=== PATIENT | female | born 1955 | race Caucasian/White ===

== ENCOUNTER → 2018-01-24 09:32 | Outpatient (REF) | payer BC, SELFPAY ==
[2018-01-24 12:52] LABS: Absolute Basophil Count 0.02 k/cumm (0.0-0.2); Absolute Eosinophil Count 0.12 k/cumm (0.0-0.7); Absolute Lymphocyte Count 1.34 k/cumm (1.2-3.4); Absolute Monocyte Count 0.53 k/cumm (0.11-0.7); Absolute Neutrophil Count 2.39 k/cumm (1.2-6.7); Basophils % 0.5; Eosinophils % 2.7; HCT 41.4 % (36.0-46.0); HGB 14.1 g/dL (12.0-15.5); Lymphocytes % 30.5; Mean Corp. HGB Concentration 34.1 g/dL (32.0-36.0); Mean Corpuscular Hemoglobin 29.6 pg (27.0-33.0); Mean Platelet Volume 9.3 fL (8.0-11.0); Neutrophils % 54.3; Platelet Count 232 x1000/uL (130-400); RBC 4.76 m/cumm (4.00-5.20)
[2018-01-24 13:18] LABS: BUN 30 mg/dL (7-18); CREATININE 0.93 mg/dL (0.55-1.02); Calcium 9.6 mg/dL (8.5-10.1); Chloride 102 mmol/L (98-107); Glucose 101 mg/dL (70-100); Potassium 4.9 mmol/L (3.5-5.1); Sodium 139 mmol/L (136-145); TSH 0.85 uIU/mL (0.358-3.74)
[2018-01-27 11:44] LABS: Hepatitis C Ab w Rflx HCV PCR Negative (NEGAT)
== END ==
LOC: NCHCN 09:32
PROVIDERS: PCP Internal Medicine; Visit Provider Internal Medicine
DX: I10 Essential (primary) hypertension (principal); R51 Headache; Z11.59 Encounter for screening for other viral diseases
CPT/HCPCS: 80048; 86803; 84443; 85025

== ENCOUNTER 2018-03-14 17:13 | Outpatient (REF) | payer BC, SELFPAY ==
--- NOTE | 2018-03-14 15:30 | PAPFT_PTH ---
PATIENT: Beatriz Combs LOC: [facility] U#:[id number] AGE/SX: 63/F ROOM: RE03/14/[address]: ANAIS Olivares : 1955 BED: DIS: 03/14/2018 SPEC #: [id number] RECD: 03/14/18 17:20 STATUS: SOCORRO REMonse #: [id number] MAUREEN: 03/14/18 15:[address]: Adelita Ferguson DEPT: [facility] Cytology RECD BY: Nae Deleon ENTERED: 03/14/18 17:20 SP TYPE: PAPFT OTHR DR: Bharath Gupta Tissues: 1 - CX/ENDOCX FOR PAP SMEARS Procedures: PAP THIN PREP/UVM Screening HPV DNA PROBE Comments: [id number]
== END 2018-03-14 17:33 ==
LOC: LBN 17:13
PROVIDERS: PCP Internal Medicine; Referring Provider Nurse Practitioner Family; Visit Provider Nurse Practitioner Family
DX: Z12.4 Encounter for screening for malignant neoplasm of cervix (principal); Z11.51 Encounter for screening for human papillomavirus (HPV)
CPT/HCPCS: 88142; 87624

== ENCOUNTER 2019-01-28 00:20 | Outpatient (CLI) | payer BC, SELFPAY ==
--- NOTE | 2019-01-28 10:44 | DI.MAMMO_ITS ---
SYMPTOMS/DIAGNOSIS: SCREENING, Z12.39 MAMMOGRAM: Mammograms were interpreted according to the usual protocol including computer analysis with CAD system, tomosynthesis and C view imaging. The breasts are of moderate density with fairly symmetrical distribution of fibroglandular tissue. No dominant mass or clumped microcalcification is identified in either breast. Current examination is compared with the previous examinations including January 2017 and there has been no gross interval change in appearance in comparison with the previous studies. CONCLUSION: No specific evidence of malignancy at this time. Routine screening examinations are suggested at yearly intervals in this age group according to the ACS/ACR guidelines. Category 1, breast density category B. MQSA ASSESSMENT OF FINDINGS: Negative. Category 1. Patient will receive a letter notifying them of these results. BI-RADS category B. There are scattered areas of fibroglandular density.
== END 2019-01-28 00:40 ==
PROVIDERS: PCP Internal Medicine; Visit Provider Nurse Practitioner Family
DX: Z12.31 Encounter for screening mammogram for malignant neoplasm of breast (principal)
CPT/HCPCS: 77063; 77067

== ENCOUNTER 2019-05-14 15:14 | Emergency (ER) | payer BC, SELFPAY ==
[2019-05-14 15:15] VITALS: BP 179/92; PULSE 87; RESP 14; TEMP 37.1; O2SAT 95
--- NOTE | 2019-05-14 15:34 | W.ED.GENAD ---
Discharge Plan Disposition Patient Disposition: HOME Condition: Good Discharge Details Chief Complaint: Vascular Clinical Impression: Vascular spasm Primary Care Provider: Bharath Gupta ED Provider: Suresh Castillo Home Meds and New Rx's Prescriptions: No Action Ultra CoQ10 75 mg capsule 75 mg PO DAILY RF: 0 acetaminophen [Tylenol] 325 mg capsule 325 mg PO ONCE PRNRF: 0 multivitamin [Daily Value] 1 EACH tablet 1 ea PO RF: 0 calcium carbonate-vitamin D3 1 EACH tablet 1 tab PO DAILY RF: 0 aspirin [Ecotrin Low Strength] 81 MG tablet,delayed release (DR/EC) 81 mg PO DAILY RF: 0 flaxseed oil 1,000 MG capsule 1,000 mg PO DAILY RF: 0 red yeast rice 600 MG capsule 600 mg PO DAILY RF: 0 omega-3 fatty acids-fish oil 1 EACH capsule 1 cap PO DAILY RF: 0 Qoxxkzqpnkd-Vvpso-YTI Complex 1 EACH tablet 1 tab PO DAILY RF: 0 cinnamon bark-chromium picolin 1 EACH capsule 1 cap PO DAILY RF: 0 spironolactone 25 mg Tablet 25 mg PO DAILY RF: 0 Discharge Instructions Instructions: Raynaud Disease (ED) Additional Instructions: At this time your symptoms are not classic to her nods syndrome, but do appear to be a vascular spasm of sorts. If it occurs again please massage it gently with your hand, make sure it is warm, and move it with your regular exercise. Please follow-up closely with Dr. Gupta. If you notice any worsening of your symptoms, or any new symptoms such as prolonged episodes of change in color, worsening pain, swelling around her hand, vomiting, diarrhea, fever, chills, shortness of breath, chest pain, numbness, weakness, or fainting , please return immediately to the emergency department for reevaluation. Please follow up with your primary care provider as soon as possible for reassessment and reevaluation. As always, it was a pleasure participating in your medical care today. Referrals: Bharath Gupta MD [Primary Care Provider] - Medical Decision Making This is a pleasant 64-year-old female who presents today for evaluation of skin color changes in her left nondominant thumb. Symptoms like this happen per the patient 14 years ago where she saw a specialist at [facility] after being referred by Dr. Gupta. They were unsure of the etiology at that time however the symptoms resolved on its own. She has had a return of the symptoms in the past week, 2-3 episodes today. The skin on the dorsal aspect of the thumb will become pale, and on the ventral aspect it will become almost violaceous. Lasts a few minutes, and usually resolves on its own. It is associated with mild tingling. She denies any trauma or other complaints. She also admits that the skin is notably cool to the touch during these episodes. She has no other complaints. She was on a calcium channel deana but was recently switched to spironolactone. No other complaints or modifying factors. Physical exam at this time demonstrates completely normal vascular exam.Bedside ultrasound demonstrates a normal and patent radial artery, a normal, patent and pulsatile deep and superficial volar arches stemming from the radial artery. No other abnormalities. Her history and exam is atypical raynouds, however there certainly seems to be a component of vascular spasm. At this time I see no indication for calcium channel deana cream, I do recommend that she keeps her extremities and digits warm at all times. She monitors closely for change in symptoms, and she follows up closely with Dr. Gupta. Additionally although she has slight linear abnormalities on the distal tip of the nail, there is no evidence of splinter hemorrhages, Janeway spots or Osler nodes. Her echocardiogram from 2012 demonstrates no evidence of atrial septal defect or ventricular septal defect, and with the notable focal illness of her symptoms I feel that it is notably inconsistent with distal clot. With no evidence of acute life-threatening etiology at this time I feel she can be safely discharged home with close follow-up. I have extensively reviewed the treatment plan and discharge instructions with the patient and their family. I have addressed all patient concerns at this time. The patient and family was made aware of what symptoms to monitor for that would warrant a return to the emergency department. Discussed the plan with the patient and family, they demonstrate verbal understanding and agreement with our assessment and plan at this time. HPI General Date/Time Provider Initiated Documentation: 05/14/19 15:15. HPI Narrative: This is a pleasant 64-year-old female who presents today for evaluation of skin color change on her left thumb on her nondominant hand. Patient states that years ago she had a similar episode where it occurred, she saw a specialist at [facility] and they were unsure as to what the etiology was. She has had no symptoms since then until the last week, today she has had 2 or 3 episodes where the skin color on the thumb will change she will be pale on the dorsal aspect, and violaceous on the ventral aspect. It will last anywhere from few minutes to around an hour. It does have associated tingling. Usually resolves on its own without any incident. Patient is on no blood thinners. She denies any history of clots. She does have a known cardiac murmur. She is not on any exogenous estrogen. She has no other complaints at this time. She denies chest pain, shortness of breath, chest heaviness, fever, chills, night sweats, arm pain neck pain elbow pain or forearm pain. No other modifying factors. No other complaints at this time. Of note she was recently on a calcium channel deana, but recently was switched from that to spironolactone. However she had only been on the calcium channel deana for 3 weeks. Not long-term. Related Data Home Medications Medication Instructions Recorded Confirmed Mbfqqfcimlh-Gcunx-EIH Complex 1 tab PO DAILY 04/15/13 03/14/18 aspirin [Ecotrin Low Strength] 81 mg PO DAILY 04/15/13 03/14/18 calcium carbonate-vitamin D3 1 tab PO DAILY 04/15/13 03/14/18 flaxseed oil 1,000 mg PO DAILY 04/15/13 03/14/18 omega-3 fatty acids-fish oil 1 cap PO DAILY 04/15/13 03/14/18 red yeast rice 600 mg PO DAILY 04/15/13 03/14/18 cinnamon bark-chromium picolin 1 cap PO DAILY 07/14/13 03/14/18 multivitamin [Daily Value] 1 ea PO 01/26/16 03/14/18 coenzyme Q10 75 mg capsule 75 mg PO DAILY 01/12/19 acetaminophen 325 mg capsule 325 mg PO ONCE PRN 03/27/19 spironolactone 25 mg PO DAILY 05/14/19 05/14/19 Allergies Allergy/AdvReac Type Severity Reaction Status Date / Time tramadol HCl [From Ultram] AdvReac Severe n/v Verified 05/14/19 15:38 codeine AdvReac Intermediate n/v Verified 05/14/19 15:38 ibuprofen AdvReac Intermediate Hematuria Verified 12/05/19 15:38 prednisone AdvReac GI issues Verified 05/14/19 15:38 General Stated Complaint: Vascular TIFFANY: 3 Review of Systems All systems reviewed & are unremarkable except as noted in HPI and below [facility] Social History (Updated 03/27/19 @ 11:08 by Kassie Frances RN) Smoking/Tobacco Use Status: Former Tobacco Use Drug use: Never Seatbelt use: always History History 3 Para 2 Hx # Term Pregnancies Multiple births Hx # Pregnancies Ectopic pregnancies AB induced Hx Number of Living Children AB spontaneous Exam Narrative Exam Narrative: 1.Const: Well-nourished, Well-developed, appearing stated age 2.Eyes: PERRL, no conjunctival injection, and symmetrical lids. 3.ENT: Atraumatic external nose and ears. Moist MM. Neck: Symmetric, trachea midline, No thyromegaly. 4.CVS: +S1/S2, Mild cardiac murmur. Peripheral pulses 2+ and equal in all extremities. Brisk capillary refill in all extremities. 5.RESP: Unlabored respiratory effort. Clear to auscultation bilaterally. No wheezes rales or rhonchi 6.GI: Soft, Nontender/Nondistended, No hepatosplenomegaly. No guarding or rebound. 7.MSK: Normocephalic/Atraumatic, Extremities w/o deformity or ttp No cyanosis or clubbing, Normal movement of all extremities Left thumb: The patient's left thumb is completely normal in appearance. No violaceous discolorations. The capillary refill is brisk, less than 2 seconds. Sensation is intact, including light touch, and pinprick. Radial pulses normal and +2 bilaterally. Normal flexion-extension movement of the finger. Bedside ultrasound demonstrates a normal and patent radial artery, a normal, patent and pulsatile deep and superficial volar arches stemming from the radial artery. 8.Skin: Warm, Dry. No rashes or lesions. No Osler nodes or Janeway lesions. 9.Neuro: note teller II-XII grossly intact. Sensation grossly intact, no focal neurologic deficits. 10.Psych: (AAO) x3. Appropriate mood and affect Course Vital Signs Vital signs: Vital Signs Temperature 37.1 C 05/14/19 15:15 Pulse 87 05/14/19 15:15 Respiratory Rate 14 05/14/19 15:15 Blood Pressure 179/92 H 05/14/19 15:15 Pulse Oximetry 95 05/14/19 15:15 Temperature 37.1 C 05/14/19 15:15 Temperature Source Skin 05/14/19 15:15 Pulse 87 05/14/19 15:15 Respiratory Rate 14 05/14/19 15:15 Blood Pressure 179/92 H 05/14/19 15:15 Blood Pressure Position Sitting 05/14/19 15:15 Pulse Oximetry 95 05/14/19 15:15 Oxygen Delivery Method Room Air 05/14/19 15:15 Oxygen Flow Rate 0 05/14/19 15:15 Pain Level 0 05/14/19 15:15 Comment 05/14/19 15:15
== END 2019-05-14 15:47 | disposition home or self-care (01) ==
LOC: ER 15:54
PROVIDERS: Emergency Provider Student in an Organized Health Care Education/Training Program; PCP Internal Medicine
DX: I73.9 Peripheral vascular disease, unspecified (principal); R20.2 Paresthesia of skin
CPT/HCPCS: 99282

== ENCOUNTER 2019-05-22 16:11 | Outpatient (REF) | payer BC, SELFPAY ==
[2019-05-22 21:02] LABS: Anion Gap 8.7 mmol/L (3-11); BUN 22 mg/dL (7-18); CO2 29.3 mmol/L (21.0-32.0); CREATININE 0.89 mg/dL (0.55-1.02); Calcium 9.3 mg/dL (8.5-10.1); Chloride 101 mmol/L (98-107); Glucose 95 mg/dL (74-106); Potassium 4.7 mmol/L (3.5-5.1); Sodium 139 mmol/L (136-145)
== END 2019-05-22 16:31 ==
LOC: NCHCN 16:11
PROVIDERS: PCP Internal Medicine; Visit Provider Internal Medicine
DX: I10 Essential (primary) hypertension (principal)
CPT/HCPCS: 80048

== ENCOUNTER 2019-06-10 09:49 | Emergency (ER) | payer BC, SELFPAY ==
[2019-06-10 10:01] VITALS: BP 158/95; PULSE 95; RESP 16; TEMP 36.5; O2SAT 97
[2019-06-10 10:08] LABS: Bilirubin Small (Negative); Blood Large (Negative); Clarity Clear (Clear); Glucose Negative (Negative); Ketones Negative (Negative); Leukocyte Esterase Large (Negative); Nitrite Positive (Negative); Urobilinogen 0.2 EU/dL (Up TO 0.2); pH 6.5 (5-8)
[2019-06-10 10:17] LABS: Bacteria Color Interference HPF (Negative); C & S Indicated? Color Interference; Crystals Color Interference HPF (Negative); Epithelial Cells Color Interference HPF (Negative); Mucus Color Interference (Negative); RBC >50 HPF (0-2)
[2019-06-10 10:18] LABS: WBC Color Interference HPF (0-5)
--- NOTE | 2019-06-10 10:23 | ED.GENADUL_ITS ---
Discharge Plan Disposition Patient Disposition: HOME Condition: Stable Discharge Details Chief Complaint: Urinary Clinical Impression: UTI (urinary tract infection) Primary Care Provider: Bharath Gupta ED Provider: Darlin Negro Home Meds and New Rx's Prescriptions: New cephalexin [Keflex] 500 mg capsule 500 mg PO BID 5 Days Qty: 10 RF: 0 phenazopyridine [Pyridium] 200 mg tablet 200 mg PO TID PRN (Reason: pain) Qty: 6 RF: 0 Continued Ultra CoQ10 75 mg capsule 75 mg PO DAILY RF: 0 acetaminophen [Tylenol] 325 mg capsule 325 mg PO ONCE PRNRF: 0 multivitamin [Daily Value] 1 EACH tablet 1 ea PO RF: 0 calcium carbonate-vitamin D3 1 EACH tablet 1 tab PO DAILY RF: 0 aspirin [Ecotrin Low Strength] 81 MG tablet,delayed release (DR/EC) 81 mg PO DAILY RF: 0 flaxseed oil 1,000 MG capsule 1,000 mg PO DAILY RF: 0 red yeast rice 600 MG capsule 600 mg PO DAILY RF: 0 omega-3 fatty acids-fish oil 1 EACH capsule 1 cap PO DAILY RF: 0 Spkduxbjxcs-Aihte-ROZ Complex 1 EACH tablet 1 tab PO DAILY RF: 0 cinnamon bark-chromium picolin 1 EACH capsule 1 cap PO DAILY RF: 0 nifedipine 30 mg Tablet Extended Release 30 mg PO DAILY RF: 0 Discharge Instructions Instructions: Urinary Tract Infection in Women (ED) Additional Instructions: Take the antibiotics until finished. Use the Pyridium as needed and directed for pain with urination. Drink plenty of fluids and get plenty of rest. Follow-up with your primary care doctor in 1 week. Return to the emergency department with any worsening or new concerning symptoms. Discharge Data Discharge Date/Time-TO BE ENTERED AT DEPARTURE: 06/10/19 10:50 Discharge Physician: Darlin Negro Medical Decision Making 64-year-old female presents with dysuria, hematuria, urinary frequency and urgency since yesterday. She states she noticed pink tinge to her urine yesterday, which turned to red color last night now with red with blood clots this morning. She denies fever, vomiting, abdominal or back pain. Abdomen soft nontender. No CVA tenderness. Urinalysis notes greater than 50 RBCs, large leukocyte esterase and positive nitrite. Remainder of microscopic analysis not completed due to color interference. Discussed with patient that we cannot send this for urine culture as there is color interference but will plan to treat with Keflex and Pyridium. Patient is understanding of this plan. She is advised to follow-up with her primary care doctor for reevaluation and to return here with any worsening symptoms. Medical Records Medical records reviewed: Yes I reviewed the patient's medical records. Lab Data Lab results reviewed: Yes I reviewed the patient's lab results. Labs: Laboratory Tests Range/Units 06/10/19 08:55 Urine Color (Yellow) Red Urine Clarity (Clear) Clear Urine pH (5-8) 6.5 Ur Specific Solon (1.005-1.025) 1.020 Urine Protein (Negative) mg/dL >=300 H Urine Ketones (Negative) mg/dL Negative Urine Blood (Negative) Large H Urine Nitrite (Negative) Positive H Urine Bilirubin (Negative) Small H Urine Urobilinogen (Up TO 0.2) EU/dL 0.2 Ur Leukocyte Esterase (Negative) Large H Urine RBC (0-2) HPF >50 H Urine WBC (0-5) HPF Color interference Ur Epithelial Cells (Negative) HPF Color interference Urine Crystals (Negative) HPF Color interference Urine Bacteria (Negative) HPF Color interference Urine Mucus (Negative) Color interference Ur Culture Indicated? Color interference Urine Glucose (Negative) mg/dL Negative HPI General Mode of arrival: ambulatory . Date/Time Provider Initiated Documentation: 06/10/19 09:51 . Limitations to Documentation: no limitations . Information obtained by: patient . History of Present Illness 64 year old F presents to the emergency department with the chief complaint of UTI symptoms, Patient started experiencing this day(s) (1) and it has been constant. No relieving factors improve symptom(s), No exacerbating factors reported . Patient notes denies fever/chills, headaches and nausea/vomiting. Patient did receive the following treatments prior to arrival, none Related Data Home Medications Medication Instructions Recorded Confirmed Kxqrtiatlpo-Govth-KTE Complex 1 tab PO DAILY 04/15/13 06/10/19 aspirin [Ecotrin Low Strength] 81 mg PO DAILY 04/15/13 06/10/19 calcium carbonate-vitamin D3 1 tab PO DAILY 04/15/13 06/10/19 flaxseed oil 1,000 mg PO DAILY 04/15/13 06/10/19 omega-3 fatty acids-fish oil 1 cap PO DAILY 04/15/13 06/10/19 red yeast rice 600 mg PO DAILY 04/15/13 06/10/19 cinnamon bark-chromium picolin 1 cap PO DAILY 07/14/13 06/10/19 multivitamin [Daily Value] 1 ea PO 01/26/16 03/14/18 coenzyme Q10 75 mg capsule 75 mg PO DAILY 01/12/19 06/10/19 acetaminophen 325 mg capsule 325 mg PO ONCE PRN 03/27/19 06/10/19 cephalexin [Keflex] 500 mg PO BID 5 Days #10 cap 06/10/19 nifedipine 30 mg PO DAILY 06/10/19 06/10/19 phenazopyridine [Pyridium] 200 mg PO TID PRN #6 tab 06/10/19 Previous Rx's Medication Instructions Recorded cephalexin [Keflex] 500 mg PO BID 5 Days #10 cap 06/10/19 phenazopyridine [Pyridium] 200 mg PO TID PRN #6 tab 06/10/19 Allergies Allergy/AdvReac Type Severity Reaction Status Date / Time tramadol HCl [From Ultram] AdvReac Severe n/v Verified 06/10/19 10:04 codeine AdvReac Intermediate n/v Verified 06/10/19 10:04 ibuprofen AdvReac Intermediate Hematuria Verified 06/10/19 10:04 prednisone AdvReac GI issues Verified 06/10/19 10:04 General Stated Complaint: Urinary TIFFANY: 4 Review of Systems All systems reviewed & are unremarkable except as noted in HPI and below Constitutional Constitutional: Reports as per HPI, Denies chills and Denies fever(s) Eyes Eyes: Denies blurry vision ENT Ears, Nose, Mouth, and Throat: Denies dizziness, Denies sore throat and Denies throat swelling Cardiovascular Cardiovascular: Denies chest pain and Denies dyspnea Respiratory Respiratory: Denies cough and Denies dyspnea Gastrointestinal Gastrointestinal: Denies abdominal pain, Denies diarrhea and Denies vomiting Genitourinary Genitourinary: Reports hematuria, Reports urinary frequency, Reports dysuria, Reports urinary hesitancy and Reports urinary urgency Musculoskeletal Musculoskeletal: Denies back pain and Denies numbness Integumentary/Breasts Skin/Breast: Denies lesions and Denies rash Neurologic Neurologic: Denies dizziness, Denies focal weakness and Denies numbness Allergic/Immunologic Allergic/Immunologic: Denies throat swelling [facility] Medical History HTN (hypertension) Reactive airway disease (Acute) Surgical History Colonoscopy - MAC (03/25/17) Family History Mother Diabetes Coronary artery disease Father Coronary artery disease Stroke Sister Diabetes Coronary artery disease Other Thyroid disorder Social History Smoking/Tobacco Use Status: Former Tobacco Use Drug use: Never Seatbelt use: always History History 3 Para 2 Hx # Term Pregnancies Multiple births Hx # Pregnancies Ectopic pregnancies AB induced Hx Number of Living Children AB spontaneous Exam Const General: cooperative, healthy appearing and no acute distress HENMT Head: normal to inspection Face and sinus: normal facial exam Eyes General: appearance normal, both eyes and all related structures EOM: EOM intact bilaterally Neck Neck: normal visual inspection and No submandibular swelling Lymphatic: no lymphadenopathy noted Chest Chest: normal inspection of the chest and no tenderness Resp Effort & Inspection: normal respiratory effort and able to speak in complete sentences Auscultation: clear to auscultation bilaterally Cardio Rate: regular rate Rhythm: regular rhythm GI Inspection: normal to inspection Palpation: soft, not firm, not rigid and nontender Auscultation: normal bowel sounds Back/Spine/Pelvis Back: no CVA tenderness Skin General skin exam: no rashes or lesions noted Neuro General: alert, awake and oriented x3 Cognition: normal cognition Speech: speech normal Motor: muscle tone normal throughout Sensory Exam: no sensory deficits noted Extrem General: normal to inspection and full ROM Psych Appearance: grossly normal Mental Status: mental status grossly normal Speech and Movement: speech and movement normal Affect: normal affect Course Vital Signs Vital signs: Vital Signs Temperature 97.7 F 06/10/19 10:01 Pulse 95 H 06/10/19 10:01 Respiratory Rate 16 06/10/19 10:01 Blood Pressure 158/95 H 06/10/19 10:01 Pulse Oximetry 97 06/10/19 10:01 Temperature 97.7 F 06/10/19 10:01 Temperature Source Skin 06/10/19 10:01 Pulse 95 H 06/10/19 10:01 Respiratory Rate 16 06/10/19 10:01 Respiratory Effort Non-Labored 06/10/19 10:01 Blood Pressure 158/95 H 06/10/19 10:01 Blood Pressure Position Sitting 06/10/19 10:01 Pulse Oximetry 97 06/10/19 10:01 Oxygen Delivery Method Room Air 06/10/19 10:01 Oxygen Flow Rate 0 06/10/19 10:01 Pain Level 0 06/10/19 10:07 Lab/Test Results Lab/Test Results: Laboratory Tests Range/Units 06/10/19 08:55 Urine Color (Yellow) Red Urine Clarity (Clear) Clear Urine pH (5-8) 6.5 Ur Specific Solon (1.005-1.025) 1.020 Urine Protein (Negative) mg/dL >=300 H Urine Ketones (Negative) mg/dL Negative Urine Blood (Negative) Large H Urine Nitrite (Negative) Positive H Urine Bilirubin (Negative) Small H Urine Urobilinogen (Up TO 0.2) EU/dL 0.2 Ur Leukocyte Esterase (Negative) Large H Urine RBC (0-2) HPF >50 H Urine WBC (0-5) HPF Color interference Ur Epithelial Cells (Negative) HPF Color interference Urine Crystals (Negative) HPF Color interference Urine Bacteria (Negative) HPF Color interference Urine Mucus (Negative) Color interference Ur Culture Indicated? Color interference Urine Glucose (Negative) mg/dL Negative
== END 2019-06-10 10:50 | disposition home or self-care (01) ==
PROVIDERS: Emergency Provider Physician Assistant; PCP Internal Medicine
DX: R30.0 Dysuria (principal); R31.9 Hematuria, unspecified; N39.0 Urinary tract infection, site not specified; I10 Essential (primary) hypertension
CPT/HCPCS: 99283; 81003; 81015

== ENCOUNTER 2019-06-15 12:21 | Outpatient (REF) | payer BC, SELFPAY ==
[2019-06-15 14:27] LABS: Bilirubin Negative (Negative); Blood Negative (Negative); Clarity Clear (Clear); Glucose Negative (Negative); Ketones Negative (Negative); Leukocyte Esterase Negative (Negative); Nitrite Negative (Negative); Specific Gravity 1.025 (1.005-1.025); Urobilinogen 0.2 EU/dL (Up TO 0.2)
[2019-06-15 17:42] LABS: COMMENT (LAB VIEW ONLY) 117.72 mg/dL; Microalb ug/mg Crea 27.3 ug/mg Cr
== END 2019-06-15 12:41 ==
LOC: NCHCN 12:21
PROVIDERS: PCP Internal Medicine; Visit Provider Internal Medicine
DX: I10 Essential (primary) hypertension (principal); R31.21 Asymptomatic microscopic hematuria; J45.990 Exercise induced bronchospasm; I73.00 Raynaud's syndrome without gangrene
CPT/HCPCS: 81003; 82043; 82570

== ENCOUNTER 2019-08-19 03:14 | Outpatient (CLI) | payer BC, SELFPAY ==
[2019-08-19 08:07] LABS: CREATININE 0.95 mg/dL (0.55-1.02); Estimated GFR 59.04 (mL/min/1.73m2)
== END 2019-08-19 03:34 ==
PROVIDERS: PCP Internal Medicine; Visit Provider Internal Medicine
DX: Z01.812 Encounter for preprocedural laboratory examination (principal); R69 Illness, unspecified
CPT/HCPCS: 36415; 82565

== ENCOUNTER 2019-08-24 00:24 | Outpatient (CLI) | payer BC, SELFPAY ==
--- NOTE | 2019-08-24 | DI.CT_ITS ---
EXAM: CT ABDOMEN PELVIS WO/W CLINICAL HISTORY: ASYMPTOMATIC MICROSCOPIC HEMATURIA, R31.21 TECHNIQUE: Imaging Protocol: Axial computed tomography images with coronal and sagittal reformatted images were created and reviewed CONTRAST MATERIAL: Intravenous: Omnipaque 350 Contrast volume:100 mL Oral: No COMPARISON: No exams were available for comparison FINDINGS: ABDOMEN: Lung Bases: Normal where visualized. Liver: Normal density. No measurable mass. 1.8 cm simple cyst in the right lobe. Portal, Superior Mesenteric, and Splenic Veins: Unremarkable. Gallbladder and Biliary Tract: No radiodense calculus or dilation. Pancreas: Normal density, no abnormal calcifications or inflammatory process. Spleen: Normal. Adrenals: No masses seen. Kidneys: Normal size, contour and axis. No radiodense stones or obstructive uropathy. No masses seen. Tiny hypodensities are seen in the kidneys bilaterally. They are too small for further characteriza tion but likely reflect small cysts. Abdominal Aorta: Abdominal portion non-dilated. Atherosclerosis. Bowel: No obstruction or bowel wall thickening. No evidence of acute appendicitis. Peritoneal Cavity: No ascites, collection or mesenteric inflammatory response. Lymph Nodes: Within normal limits. Bones: Degenerative changes present. Soft Tissues: Unremarkable. PELVIS: Bladder: There is mild diffuse wall thickening of the urinary bladder. This may be due to underdiste ntion. An infectious or inflammatory process cannot be excluded. Reproductive Organs: Unremarkable as visualized. Lymph Nodes: Within normal limits. Bones: Grade 1 pseudo spondylolisthesis of L4 on L5 is noted. Mild degenerative changes are seen in the spine. IMPRESSION: 1. No evidence of nephrolithiasis or hydronephrosis. 2. Diffuse mild urinary bladder wall thickening. This may be due to underdistention. An infectious or inflammatory process cannot be excluded. RADIATION DOSE DELIVERED: DATA REPOSITORY: All CT scans at this facility are submitted to the National Radiology Data Registry (NRDR) Dose Index Registry (DIR) with the [employer] (ACR). RADIATION OPTIMIZATION: All CT scans at this facility use at least one of these dose optimization te chniques: automated exposure control; mA and/or kV adjustment per patient size (includes targeted exa ms where dose is matched to clinical indication); or iterative reconstruction.
[2019-08-24] MEDS: Omnipaque 350 MG/ML 100 ML BTL IV (09:03)
[2019-08-24] MEDS: Normal Saline - Diluent 50 ML VIAL IV (09:06)
== END 2019-08-24 00:44 ==
PROVIDERS: PCP Internal Medicine; Visit Provider Internal Medicine
DX: R31.21 Asymptomatic microscopic hematuria (principal); K76.89 Other specified diseases of liver; N28.1 Cyst of kidney, acquired; N32.89 Other specified disorders of bladder
CPT/HCPCS: 74178; J3490

== ENCOUNTER 2019-10-14 01:26 | Outpatient (CLI) | payer BC, SELFPAY ==
--- NOTE | 2019-10-14 09:00 | DI.DEXA_ITS ---
EXAM: XR DEXA BONE DENSITY W/WO DEBBIE CLINICAL HISTORY: POSTMENOPAUSAL DISORDER, N95.9 TECHNIQUE: [employer] C densitometer COMPARISON: No exams were available for comparison FINDINGS: The DEBBIE image shows no evidence of compression fractures. The bone mineral density measurements of the lumbar spine correspond to a total T-score of -1.7, in t he osteopenic range. The bone mineral density measurements of the left hip correspond to a total T-score -2.3, in the oste openic range. The femoral neck T-score Is -2.0. The left forearm bone mineral density measurements correspond to a T-score of the distal 3rd of -2.2, consistent with osteopenia. IMPRESSION: Osteopenia of the lumbar spine, left hip and left forearm.
== END 2019-10-14 01:46 ==
PROVIDERS: PCP Internal Medicine; Visit Provider Internal Medicine
DX: M85.88 Other specified disorders of bone density and structure, other site (principal); N95.9 Unspecified menopausal and perimenopausal disorder
CPT/HCPCS: 77080

== ENCOUNTER 2019-11-11 13:00 | Outpatient (REF) | payer BC, SELFPAY ==
--- NOTE | 2019-11-11 11:00 | PAPNONF_PTH ---
PATIENT: Beatriz Combs LOC: [facility] U#:[id number] AGE/SX: 64/F ROOM: RE11/11/[address]: Chela Manzo DNP : 1955 BED: DIS: 11/11/2019 SPEC #: [id number] RECD: 11/11/19 14:53 STATUS: [facility] REQ #: [id number] MAUREEN: 11/11/19 11:[address]: Chela Manzo DEPT: [facility] Cytology RECD BY: Nae Deleon ENTERED: 11/11/19 14:53 SP TYPE: NINA RODRIGUEZ DR: Bharath Gupta Tissues: 1 - BODY FLUID CYTO(SPUTUM/URINE)UV Procedures: BODY FLUID CYTO(URINE/SPUTUM) Comments: [id number] (TOTAL VOLUME = 84 ml's) (42 ml's URINE & 42 ml's CYTOLYT ADDED IN 2 CONTAINERS)
== END 2019-11-11 13:20 ==
LOC: LBN 13:00
PROVIDERS: PCP Internal Medicine; Visit Provider Nurse Practitioner Gerontology
DX: R31.9 Hematuria, unspecified (principal); R82.90 Unspecified abnormal findings in urine
CPT/HCPCS: 88104

== ENCOUNTER 2020-01-14 08:50 | Outpatient (REF) | payer BC, SELFPAY ==
[2020-01-14 20:52] LABS: Anion Gap 10.3 mmol/L (3-11); BUN 23 mg/dL (7-18); CO2 27.7 mmol/L (21.0-32.0); CREATININE 0.81 mg/dL (0.55-1.02); Calcium 9.9 mg/dL (8.5-10.1); Chloride 104 mmol/L (98-107); Glucose 123 mg/dL (74-106); Potassium 4.3 mmol/L (3.5-5.1); Sodium 142 mmol/L (136-145)
== END 2020-01-14 09:10 ==
LOC: NCHCN 08:50
PROVIDERS: PCP Internal Medicine; Visit Provider Internal Medicine
DX: I10 Essential (primary) hypertension (principal)
CPT/HCPCS: 80048

== ENCOUNTER 2020-06-17 04:04 | Outpatient (CLI) | payer BC, SELFPAY ==
--- NOTE | 2020-06-17 07:47 | DI.MAMMO_ITS ---
EXAM: MG MAMMO SCREENING CLINICAL HISTORY: SCREENING,Z12.39 TECHNIQUE: Bilateral full field digital CC and MLO mammographic images were obtained with 3D tomosyn thesis and utilizing computer aided detection (CAD). COMPARISON: Available for comparison. FINDINGS: Masses/Architectural Distortion: None seen. Stable breast nodules are seen. Microcalcifications: No suspicious pleomorphic-type are seen. Skin Thickening/Nipple Retraction: None. IMPRESSION: 1. No significant interval change with no specific features of malignancy noted. 2. Unless there is more urgent need, screening mammography is recommended, as per [place] [employer] guidelines. BI-RADS Category 1 - Negative Breast Density - Category B - Scattered areas of fibroglandular density Breast density category C or D implies that the patient has dense breast tissue. Dense breast tissue is very common and is not abnormal but dense breast tissue can make it harder to find cancer on a ma mmogram. Also, dense breast tissue may increase their breast cancer risk. This information about the result of the mammogram report was provided to the patient to raise their awareness. Use this report when you speak with the patient about their risks for breast cancer, which includes their family hist ory. At that time, you may recommend for more screening tests (Ultrasound or MRI) as they might be us eful based on their risk. A negative radiographic report should not delay biopsy if a dominant or clinically suspicious mass is present. Up to ten percent of cancers are not identified on mammography. A negative report may reinforce clinical impression. Adenosis and dense breasts may obscure an underlying neoplasm. False positive reports average 6 to 10%. Patient will receive a letter notifying them of these results.
== END 2020-06-17 04:24 ==
PROVIDERS: PCP Internal Medicine; Visit Provider Nurse Practitioner Family
DX: Z12.31 Encounter for screening mammogram for malignant neoplasm of breast (principal)
CPT/HCPCS: 77063; 77067

== ENCOUNTER 2020-06-21 18:19 | Outpatient (REF) | payer BC, SELFPAY | END 2020-06-21 18:39 | LOC: NCHCN 18:19 | PROVIDERS: PCP Internal Medicine; Visit Provider Internal Medicine | DX: R31.9 Hematuria, unspecified (principal) | CPT/HCPCS: 87077; 87086; 87186 ==

== ENCOUNTER 2021-01-03 16:55 | Outpatient (REF) | payer BC, SELFPAY ==
[2021-01-03 21:53] LABS: HCT 40.8 % (36.0-46.0); HGB 13.7 g/dL (11.2-15.7); MCH 29.7 pg (27.0-33.0); MCHC 33.6 % (32.0-36.0); MCV 88.5 fL (80-95); MPV 9.9 fL (8.0-11.0); Platelet Count 210 10^3/uL (130-400); RBC 4.61 10^6/uL (3.93-5.22); RDW 12.5 % (11.7-14.6); RDW-SD 40.2 fL; WBC 4.92 10^3/uL (4.4-10.8)
[2021-01-03 22:27] LABS: ALT 26 U/L (14-59); AST 26 U/L (15-37); Albumin 4.4 g/dL (3.4-5.0); Alkaline Phosphatase 56 U/L (46-116); Anion Gap 10.4 mmol/L (3-11); BUN 24 mg/dL (7-18); Bilirubin, Total 1.3 mg/dL (0.2-1.0); CO2 26.6 mmol/L (21.0-32.0); CREATININE 0.8 mg/dL (0.55-1.02); Calcium 9.9 mg/dL (8.5-10.1); Chloride 104 mmol/L (98-107); Glucose 86 mg/dL (74-106); Potassium 4.9 mmol/L (3.5-5.1); Sodium 141 mmol/L (136-145)
== END 2021-01-03 16:56 | disposition home or self-care (01) ==
LOC: NCHCN 16:55
PROVIDERS: PCP Internal Medicine; Visit Provider Internal Medicine
DX: R10.30 Lower abdominal pain, unspecified (principal)
CPT/HCPCS: 80053; 85027

== ENCOUNTER 2021-06-08 06:45 | Outpatient (CLI) | payer BC, SELFPAY ==
--- NOTE | 2021-06-08 | DI.RAD_ITS ---
Exam(s) XR LUMBAR SPINE COMPLETE EXAM: XR LUMBAR SPINE COMPLETE CLINICAL HISTORY: SACROILIAC PAIN, M53.3. TECHNIQUE: 2D digital imaging was performed. COMPARISON: CR XR DEXA BONE DENSITY W/WO DEBBIE from 10/14/2019 FINDINGS: There is no evidence of acute fracture. There is degenerative anterolisthesis of L4 upon L5 noted wh ich is not a new finding as it was evident on the lateral image of the DEXA scan performed October 2019. There is some disc space narrowing at L4-5 and L3-4 levels. No scoliosis. Sacroiliac joints unrema rkable. No osseous lesions. Some facet arthropathy noted. IMPRESSION: No acute fractures. L4 upon L5 a listhesis on degenerative facet joint arthropathy basis, this not a new finding. DATA REPOSITORY: RADIATION DOSE DELIVERED:
--- NOTE | 2021-06-08 | DI.RAD_ITS ---
Exam(s) XR SACRUM EXAM: XR SACRUM CLINICAL HISTORY: SACROILIAC PAIN, M53.3. TECHNIQUE: 2D digital imaging was performed. COMPARISON: No exams were available for comparison FINDINGS: No evidence of sacral fracture. Disc space narrowing multiple levels noted. No ankylosis of the SI joints noted If clinically indicated dedicated sacroiliac joint images can be performed. IMPRESSION: DATA REPOSITORY: RADIATION DOSE DELIVERED:
== END 2021-06-08 07:05 ==
PROVIDERS: PCP Internal Medicine; Visit Provider Family Medicine
DX: M53.3 Sacrococcygeal disorders, not elsewhere classified (principal); M51.36 Other intervertebral disc degeneration, lumbar region; M47.816 Spondylosis without myelopathy or radiculopathy, lumbar region
CPT/HCPCS: 72110; 72220

== ENCOUNTER 2021-08-25 00:30 | Outpatient (CLI) | payer BC, SELFPAY ==
--- NOTE | 2021-08-25 13:00 | DI.MAMMO_ITS ---
Exam(s) MAMMO SCREENING EXAM: MAMMO SCREENING CLINICAL HISTORY: screening TECHNIQUE: Mammograms were interpreted according to the usual protocol including computer analysis w [employer] CAD system, tomosynthesis and C-view imaging. COMPARISON: FINDINGS: The breasts are heterogeneously dense. No dominant mass or clumped microcalcification is identified in either breast. The current examination is compared with previous examinations including June 11 and there is question of interval change in an area of asymmetric density in the superior central portion of the right breast on MLO view. Additional mammographic views of this area are requested t o include MLO spot compression view of the right breast. Additionally the posterior lateral portion of the right breast is not ideally visualized with some as ymmetric density seen posteriorly and I would request that an additional a cc view be obtained exagge rated the lateral portion of the breast. IMPRESSION: Additional mammographic views of the right breast requested as described above. Breast ultrasound ma y be indicated as well depending on the results of the additional mammographic views. BI-RADS Category 0 - Assessment Incomplete: Need additional imaging evaluation Breast Density - Category B - Scattered areas of fibroglandular density
== END 2021-08-25 00:50 ==
PROVIDERS: PCP Internal Medicine; Visit Provider Nurse Practitioner Family
DX: Z12.31 Encounter for screening mammogram for malignant neoplasm of breast (principal); R92.8 Other abnormal and inconclusive findings on diagnostic imaging of breast
CPT/HCPCS: 77063; 77067

== ENCOUNTER 2021-09-29 00:37 | Outpatient (CLI) | payer BC, SELFPAY ==
--- NOTE | 2021-09-29 | DI.MAMMO_ITS ---
Exam(s) MAMMO SCREEN CALL BACK UNI EXAM: MAMMO SCREEN CALL BACK UNI CLINICAL HISTORY: ASYMMETRIC DENSITY RT BREAST TECHNIQUE: Spot compression cc, mL, MLO and exaggerated CC views and tomographic imaging were perfor med. COMPARISON: 25 August 2021 and exams back to 2012. FINDINGS: No suspicious masses or suspicious microcalcifications are seen. No persistent abnormality is seen on the additional views performed. The findings are consistent wit h overlying fibroglandular tissue. There has been no significant change from prior exams. IMPRESSION: BI-RADS Category 1, Negative Yearly screening mammography is recommended. Breast Density - Category B, scattered fibroglandular densities.
== END 2021-09-29 00:57 ==
PROVIDERS: PCP Internal Medicine; Visit Provider Nurse Practitioner Family
DX: Z12.31 Encounter for screening mammogram for malignant neoplasm of breast (principal); R92.8 Other abnormal and inconclusive findings on diagnostic imaging of breast; N64.59 Other signs and symptoms in breast
CPT/HCPCS: 77063; 77067

== ENCOUNTER 2021-11-20 10:42 | Outpatient (REF) | payer BC, SELFPAY ==
[2021-11-20 14:58] LABS: ALT 36 U/L (14-59); AST 27 U/L (15-37); Albumin 4.4 g/dL (3.4-5.0); Alkaline Phosphatase 78 U/L (46-116); Anion Gap 11.7 mmol/L (3-11); BUN 27 mg/dL (7-18); Bilirubin, Total 1.5 mg/dL (0.2-1.0); CO2 28.3 mmol/L (21.0-32.0); CREATININE 0.8 mg/dL (0.55-1.02); Calcium 10.3 mg/dL (8.5-10.1); Calculated LDL 94 mg/dL (<100); Chloride 103 mmol/L (98-107); Cholesterol 206 mg/dL (<200); Glucose 108 mg/dL (74-106); HDL Cholesterol 97 mg/dL (40-60); Potassium 4.6 mmol/L (3.5-5.1); Sodium 143 mmol/L (136-145); Total Protein 7.1 g/dL (6.4-8.2); Triglyceride 79 mg/dL (<150)
== END 2021-11-20 10:43 | disposition home or self-care (01) ==
LOC: NCHCN 10:42
PROVIDERS: PCP Internal Medicine; Visit Provider Internal Medicine
DX: I10 Essential (primary) hypertension (principal); E80.6 Other disorders of bilirubin metabolism; Z00.00 Encounter for general adult medical examination without abnormal findings; J45.990 Exercise induced bronchospasm; M85.80 Other specified disorders of bone density and structure, unspecified site
CPT/HCPCS: 80053; 80061

== ENCOUNTER → 2022-01-18 00:54 | Outpatient (CLI) | payer BC, SELFPAY ==
--- NOTE | 2022-01-18 | DI.DEXA_ITS ---
Exam(s) XR DEXA BONE DENSITY W/WO DEBBIE EXAM: XR DEXA BONE DENSITY W/WO DEBBIE CLINICAL HISTORY: OSTEOPENIA,M85.80,DISORDER OF BONE DENSITY,M85.88 TECHNIQUE: Routine DEXA evaluation of the lumbar spine, hip, or forearm. COMPARISON: Prior DEXA scan October 2019 FINDINGS: Performed on a Hologic unit. Lateral image: No compression fracture evident. However, there is disc space narrowing and there is also an element of degenerative anterolisthesis L4 upon L5. This was also evident on plain films of 06/08/2021 Lumbar Spine total T-score: -1.6. Prior October 2019 reading was -1.7. Hip total T-score:-2.6. Prior October 2019 reading was -2.3. Independent reading at the level of the femoral neck yields at T-score of .-2.4 Forearm total T-score: -2.2 IMPRESSION: Bone mineral density presently measures in the osteoporosis range. Fracture risk is high. Note: Any spine fracture indicates 5x risk for subsequent spine fracture and 2x risk for subsequent h ip fracture. World Health Organization criteria for BMD interpretation classify patients: Normal...... T- Score at or above -1.0 Osteopenic... T- Score between -1.0 and -2.5 Osteoporosis... T-Score at or below -2.5
== END ==
PROVIDERS: PCP Internal Medicine; Visit Provider Internal Medicine
DX: Z13.820 Encounter for screening for osteoporosis (principal); M81.0 Age-related osteoporosis without current pathological fracture
CPT/HCPCS: 77080

== ENCOUNTER 2022-05-17 10:51 | Outpatient (REF) | payer BC, SELFPAY ==
[2022-05-17 15:07] LABS: Abs Immature Grans 0.02 10^3/uL (0.0-0.06); Absolute Basophil Count 0.04 10^3/uL (0.0-0.2); Absolute Eosinophil Count 0.08 10^3/uL (0.0-0.7); Absolute Lymphocyte Count 1.79 10^3/uL (1.2-3.4); Absolute Monocyte Count 0.66 10^3/uL (0.1-0.8); Absolute Neutrophil Count 5.51 10^3/uL (1.2-6.7); Basophils % 0.5; HCT 43.4 % (36.0-46.0); HGB 14.3 g/dL (11.2-15.7); Immature Grans % 0.2; Lymphocytes % 22.1; MCH 28.8 pg (27.0-33.0); MCHC 32.9 % (32.0-36.0); MCV 87 fL (80-95); MPV 9.4 fL (8.0-11.0); Monocytes % 8.1; Neutrophils % 68.1; Platelet Count 262 10^3/uL (130-400); RBC 4.97 10^6/uL (3.93-5.22); RDW 12.5 % (11.7-14.6); RDW-SD 40.1 fL
[2022-05-17 15:26] LABS: ALT 39 U/L (14-59); AST 33 U/L (15-37); Albumin 4.2 g/dL (3.4-5.0); Alkaline Phosphatase 71 U/L (46-116); Anion Gap 8.9 mmol/L (3-11); BUN 29 mg/dL (7-18); Bilirubin, Total 0.5 mg/dL (0.2-1.0); CO2 29.1 mmol/L (21.0-32.0); CREATININE 0.8 mg/dL (0.55-1.02); Calcium 9.6 mg/dL (8.5-10.1); Chloride 102 mmol/L (98-107); Estimated GFR 80.21 (mL/min/1.73m2); Glucose 115 mg/dL (74-106); Potassium 5.4 mmol/L (3.5-5.1); Sodium 140 mmol/L (136-145); Total Protein 7.3 g/dL (6.4-8.2)
== END 2022-05-17 10:52 | disposition home or self-care (01) ==
LOC: NCHCN 10:51
PROVIDERS: PCP Internal Medicine; Visit Provider Internal Medicine
DX: I10 Essential (primary) hypertension (principal); M81.0 Age-related osteoporosis without current pathological fracture; E80.6 Other disorders of bilirubin metabolism; E83.52 Hypercalcemia; J45.990 Exercise induced bronchospasm; F43.21 Adjustment disorder with depressed mood
CPT/HCPCS: 80053; 85025

== ENCOUNTER 2022-10-01 00:59 | Outpatient (CLI) | payer BC, SELFPAY ==
--- NOTE | 2022-10-01 07:45 | DI.MAMMO_ITS ---
Exam(s) MAMMO SCREENING EXAM: MAMMO SCREENING CLINICAL HISTORY: screening TECHNIQUE: Bilateral full field digital CC and MLO mammographic images were obtained with 3D tomosyn thesis and utilizing computer aided detection (CAD). COMPARISON: Available for comparison. FINDINGS: Masses/Architectural Distortion: There is a question of a new 0.4 cm nodule in the upper right breast on the MLO view almost 11 cm from the nipple. No suspicious there is architectural distortion are s een. Microcalcifications: No suspicious pleomorphic-type are seen. Stable benign-appearing calcifications are seen in both breasts. Skin Thickening/Nipple Retraction: None. IMPRESSION: 1. New 0.4 cm nodule in the upper right breast on the MLO view. 2. This area should be further evaluated with a spot compression view. Limited right breast ultrasou nd may also be indicated at that time. BI-RADS Category 0 - Assessment Incomplete: Need additional imaging evaluation Breast Density - Category B - Scattered areas of fibroglandular density Breast density category C or D implies that the patient has dense breast tissue. Dense breast tissue is very common and is not abnormal but dense breast tissue can make it harder to find cancer on a ma mmogram. Also, dense breast tissue may increase their breast cancer risk. This information about the result of the mammogram report was provided to the patient to raise their awareness. Use this report when you speak with the patient about their risks for breast cancer, which includes their family hist ory. At that time, you may recommend for more screening tests (Ultrasound or MRI) as they might be us eful based on their risk. A negative radiographic report should not delay biopsy if a dominant or clinically suspicious mass is present. Up to ten percent of cancers are not identified on mammography. A negative report may reinforce clinical impression. Adenosis and dense breasts may obscure an underlying neoplasm. False positive reports average 6 to 10%. Patient will receive a letter notifying them of these results.
== END 2022-10-01 01:19 ==
LOC: DI 01:00
PROVIDERS: PCP Internal Medicine; Visit Provider Nurse Practitioner Women's Health
DX: Z12.31 Encounter for screening mammogram for malignant neoplasm of breast (principal)
CPT/HCPCS: 77063; 77067

== ENCOUNTER 2022-10-04 01:27 | Outpatient (CLI) | payer BC, SELFPAY ==
--- NOTE | 2022-10-04 | DI.US_ITS ---
Exam(s) MG MAMMO SCREEN CALL BACK UNI US BREAST RT LIMITED EXAM: MG MAMMO SCREEN CALL BACK UNI and U/S breast RT limited CLINICAL HISTORY: NEW NODULE RT BREAST R92.8 ABNL MAMMO. TECHNIQUE: Craniocaudal and mediolateral oblique Full Field Digital Mammography views of the right b reast with Computer Aided Diagnosis followed by Tomosynthesis and right breast ultrasound. COMPARISON: Comparison is made with prior examinations. FINDINGS: Mammography/Tomosynthesis: Masses/Architectural Distortion: The area is less concerning on the additional views. No suspicious mass or areas of architectural distortion are identified. Microcalcifictions: No suspicious pleomorphic-type are seen. Skin Thickening/Nipple Retraction: None. Limited right breast US: Echotexture: Normal appearance of the glandular tissue. Shadowing: No suspicious foci. Cyst: None. Solid lesions: None seen. Ductal dilation: None. IMPRESSION: 1. No evidence of malignancy is noted. 2. Unless there is more urgent need, follow-up screening mammography is recommended, as per [place] [employer] guidelines. 3. The findings were discussed with the patient on the date of the examination. BI-RADS Category 1 - Negative Breast Density - Category B - Scattered areas of fibroglandular density Breast density Category C or D implies that the patient has dense breast tissue. Dense breast tissue can make it harder to find cancer on a mammogram. Dense breast tissue is also associated with an incr eased risk of breast cancer. This information about the result of the mammogram report was provided to the patient to raise their awareness. Use this report when you speak with the patient about their risks for breast cancer, which includes their family history. At that time, you may recommend additional screening tests (Ultrasoun d or MRI) as these tests may add significant information. A negative radiographic report should not delay biopsy if a dominant or clinically suspicious mass is present. Up to ten percent of cancers are not identified on mammography. A negative report may reinforce clinical impression. Adenosis and dense breasts may obscure an underlying neoplasm. False positive reports average 6 to 10%. Patient will receive a letter notifying them of these results.
== END 2022-10-04 01:47 ==
LOC: DI 01:27
PROVIDERS: PCP Internal Medicine; Visit Provider Nurse Practitioner Women's Health
DX: R92.8 Other abnormal and inconclusive findings on diagnostic imaging of breast (principal)
CPT/HCPCS: 76642; 77063; 77067

== ENCOUNTER 2022-11-13 12:58 | Outpatient (REF) | payer BC, SELFPAY ==
[2022-11-13 15:36] LABS: Anion Gap 7.7 mmol/L (3-11); BUN 24 mg/dL (7-18); CO2 29.3 mmol/L (21.0-32.0); CREATININE 0.8 mg/dL (0.55-1.02); Calcium 10.1 mg/dL (8.5-10.1); Chloride 104 mmol/L (98-107); Estimated GFR 80.21 (mL/min/1.73m2); Glucose 102 mg/dL (74-106); Magnesium 2.1 mg/dL (1.8-2.4); Potassium 5.5 mmol/L (3.5-5.1); Sodium 141 mmol/L (136-145); T4 11.3 ug/dL (4.7-13.3); TSH (W/Ref FT4) 0.59 uIU/mL (0.36-3.74); Vitamin B12 1077 pg/mL (193-986)
[2022-11-13 15:47] LABS: Hemoglobin A1C 5.6 % (<5.7)
[2022-11-13 16:36] LABS: FREE T4 1.38 ng/dL (0.76-1.46)
[2022-11-14 13:42] LABS: Albumin g/dL 4.4 g/dL (3.6-5.2)
== END 2022-11-13 12:59 | disposition home or self-care (01) ==
LOC: NCHCN 12:58
PROVIDERS: PCP Internal Medicine; Visit Provider Internal Medicine
DX: I10 Essential (primary) hypertension (principal); F43.21 Adjustment disorder with depressed mood; G62.9 Polyneuropathy, unspecified; M81.0 Age-related osteoporosis without current pathological fracture; R25.2 Cramp and spasm; Z13.1 Encounter for screening for diabetes mellitus; R79.89 Other specified abnormal findings of blood chemistry; Z79.899 Other long term (current) drug therapy
CPT/HCPCS: 80048; 82607; 83036; 83735; 84165; 84436; 84439; 84443

== ENCOUNTER → 2023-01-28 03:48 | Outpatient (CLI) | payer BC, SELFPAY ==
--- NOTE | 2023-01-28 08:00 | DI.RAD_ITS ---
Exam(s) XR FOOT RT COMPLETE EXAM: XR FOOT RT COMPLETE CLINICAL HISTORY: ? hammertoe 4th digits,RT TOE PAIN,M79.674,M20.41. TECHNIQUE: 2D digital imaging was performed of the right foot. Three images were obtained. AP, obl ique and lateral views were obtained. COMPARISON: No exams were available for comparison FINDINGS: BONES: No acute fracture is present. No bony destructive lesion is seen. There is a small plantar louise caneal spur. JOINTS: No dislocation present. Postsurgical changes involving the 2nd and 3rd toes. There also post surgical changes of bunionectomy. SOFT TISSUE: Normal. IMPRESSION: Postsurgical changes of the foot. No acute abnormality. DATA REPOSITORY: RADIATION DOSE DELIVERED:
--- NOTE | 2023-01-28 08:00 | DI.RAD_ITS ---
Exam(s) XR FOOT LT COMPLETE EXAM: XR FOOT LT COMPLETE CLINICAL HISTORY: ? hammertoe 4th digits,LT TOE PAIN, M79.675,M20.42. TECHNIQUE: 2D digital imaging was performed of the left foot. Three images were obtained. AP, obli que and lateral views were obtained. COMPARISON: No exams were available for comparison FINDINGS: BONES: No acute fracture is present. No bony destructive lesion is seen. There is a small plantar louise caneal spur. JOINTS: No dislocation present. Postsurgical changes of a bunionectomy. There is fusion of the inter phalangeal joints of the 3rd toe. Bony productive changes are seen at the 2nd and 3rd MTP joints and the interphalangeal joints of the toes. SOFT TISSUE: Normal. IMPRESSION: Postsurgical and degenerative changes in the left foot. DATA REPOSITORY: RADIATION DOSE DELIVERED:
== END ==
PROVIDERS: PCP Internal Medicine; Visit Provider Podiatrist
DX: Z98.890 Other specified postprocedural states (principal); M19.072 Primary osteoarthritis, left ankle and foot
CPT/HCPCS: 73630

== ENCOUNTER 2023-03-19 14:01 | Outpatient (CLI) | payer BC, SELFPAY ==
[2023-03-19 13:20] LABS: Vitamin B12 > 2000 pg/mL (193-986)
== END 2023-03-19 14:02 | disposition home or self-care (01) ==
LOC: LBO 14:01
PROVIDERS: PCP Internal Medicine; Visit Provider Podiatrist
DX: E53.8 Deficiency of other specified B group vitamins (principal)
CPT/HCPCS: 36415; 82607

== ENCOUNTER → 2023-08-02 00:39 | Outpatient (CLI) | payer BC, SELFPAY ==
--- NOTE | 2023-08-02 08:25 | DI.MRI_ITS ---
Exam(s) MR CERVICAL SPINE WO EXAM: MR CERVICAL SPINE WO CLINICAL HISTORY: ? myelopathy; bilateral Babinski, paresthesias in hands,r29.2,g95.9 TECHNIQUE: Multiplanar multisequence MRI of the cervical spine was performed without intravenous con trast. COMPARISON: No exams were available for comparison FINDINGS: BONES: Vertebral body heights are maintained. Intervertebral disc spaces are normal. There is 3 mm of anterolisthesis of C5 on C6. There is mild reversal of the normal cervical lordosis centered at C6. Bone marrow signal intensity is within normal limits. CERVICAL CORD: Craniovertebral junction is unremarkable. The cervical cord is normal size and signal intensity. SOFT TISSUES: Unremarkable. C2-3: No disc herniation or bulge is identified. No significant central spinal canal or neural forami nal stenosis. C3-4: There is mild prominence of the disc. No significant central spinal canal stenosis or right ne ural foraminal stenosis. There are degenerative changes seen of the facets on the left. The finding s result in mapj-qb-orqiaayb left neural foraminal stenosis. C4-5: No disc herniation or bulge is identified. There are degenerative changes of the left facets ca using ensw-dd-utnheome left neural foraminal stenosis. No significant central spinal canal or right neural foraminal stenosis is seen. C5-6: No disc herniation or bulge is identified. No significant central spinal canal stenosis. There is wxqv-aq-nzsihhbv left neural foraminal stenosis. There is no significant right neural foraminal stenosis. C6-7: There is prominence of the osteophyte disc complex at this level. There is mild prominence of the uncovertebral joints bilaterally. There is vqis-lh-powvhwsx left neural foraminal stenosis. The re is also rpsv-pj-mjnkhqjq right neural foraminal stenosis. C7-T1: No disc herniation or bulge is identified. No significant central spinal canal or neural stephanie inal stenosis IMPRESSION: 1. Normal signal in the spinal cord. 2. Multilevel degenerative changes in the cervical spine resulting in neural foraminal stenosis as de scribed above. 3. 3 mm anterolisthesis of C5 on C6 and mild reversal of the normal cervical lordosis centered at C6. DATA REPOSITORY:
--- NOTE | 2023-08-02 08:56 | DI.MRI_ITS ---
Exam(s) MR LUMBAR SPINE WO EXAM: MR LUMBAR SPINE WO CLINICAL HISTORY: L lumbar radiculopathy,M54.16. TECHNIQUE: Multiplanar multisequence MRI of the Lumbar spine was performed. COMPARISON: CT CT ABDOMEN PELVIS WO/W from 08/24/2019 FINDINGS: Bones: The last intervertebral disc space is designated the L5/S1 level for the numbering purpose of this examination. The vertebral body heights are well maintained. There is grade 1 anterolisthesis of L4 on L5. There is fusion of the L5-S1 disc space. Degenerative endplate signal changes are seen at multiple levels of the lumbar spine. Incidental note is made of perineural root sleeve cysts bailee aterally at the S2 segment. Cord: The conus tip ends at the L1 level. It is of normal size and signal intensity. T12-L1: No disc herniations or bulges are present. No central spinal canal or neural foraminal stenos is. L1-2: There is a mild diffuse disc bulge. No central spinal canal or neural foraminal stenosis. L2-3: There is a diffuse disc bulge. This does result in mild narrowing of the central spinal canal. No significant right neural foraminal stenosis. There is mild narrowing of the left neural foramen . L3-4: There is a diffuse disc bulge. There are hypertrophic changes of the facets and ligamentum fla vum. The findings result in moderately severe central spinal canal stenosis. There is foyn-er-wwvjt ate bilateral neural foraminal stenosis. L4-5: There are hypertrophic changes of the facet joints and the ligamentum flavum. There is a diffu se disc bulge. The findings result in marked central spinal canal stenosis. There is also moderatel y severe bilateral neural foraminal stenosis. L5-S1: No disc herniations or bulges are present. No central spinal canal or neural foraminal stenosi s. Soft tissues: The visualized SI joints and sacrum are well maintained. The paraspinal soft tissues ar e unremarkable. Visualized abdominal organs: There is again seen a cyst in the right lobe of the liver. This is unch anged compared to the prior CT abdomen and pelvis examination. IMPRESSION: 1. Multilevel degenerative changes in the lumbar spine with grade 1 anterolisthesis of L4 on L5 in fu evelia of the L5-S1 disc space. 2. The degenerative changes are most marked at L3-4 and L4-L5 which result in central spinal canal an d bilateral neural foraminal stenosis. Please see the above discussion for complete details. DATA REPOSITORY:
== END ==
PROVIDERS: PCP Family Medicine; Visit Provider Psychiatry & Neurology Neurology
DX: R29.2 Abnormal reflex (principal); G95.9 Disease of spinal cord, unspecified; M54.16 Radiculopathy, lumbar region
CPT/HCPCS: 72141; 72148

== ENCOUNTER → 2023-08-30 00:44 | Outpatient (CLI) | payer BC, SELFPAY ==
--- NOTE | 2023-08-30 06:30 | DI.MRI_ITS ---
Exam(s) MR THORACIC SPINE WO EXAM: MR THORACIC SPINE WO CLINICAL HISTORY: bilateral babinski and diffuse paraesthesias,R29.2 TECHNIQUE: Multiplanar multisequence MRI of the thoracic spine was performed without intravenous con trast. COMPARISON: MR MR LUMBAR SPINE WO from 08/02/2023 FINDINGS: OSSEOUS: There are no acute appearing thoracic vertebral fractures. No significant listhesis. There are no ominous osseous lesions in the thoracic vertebrae. THORACIC SPINAL CORD: There is no abnormal signal in the thoracic spinal cord and no evidence of foca l cord atrophy nor focal cord swelling. There is no evidence of syringomyelia nor significant spinal cord dysraphism. There is no evidence of mass at the conus medullaris. The position of the conus me dullaris is at lower L1 level. SIGNIFICANT INDIVIDUAL LEVEL FINDINGS: T6-7: There is a small posterolateral right disc protrusion at this level which indents the anterior right side of the thecal sac but not the spinal cord. There is no extension of the disc protrusion i nto the exiting neural foramina. No foraminal stenosis. No central canal stenosis at this level. T10-11: There is a right paracentral disc protrusion at this level with overlying bony ridging. This significantly indents the thecal sac and the anterior right side of the thoracic cord at this level. The disc protrusion at this level extends posteriorly 5 mm and is approximately 6 mm wide. It does not extend into the exiting neural foramen. There is no foraminal stenosis on either side at this l evel. T11-T12: Mild central annular bulging without a prominent disc herniation. Central canal dimensions are normal. No foraminal stenosis. PARASPINAL TISSUES: No significant masses nor fluid collections evident. IMPRESSION: 1. Main finding here is at T10-11 level where there is a focal posterior right paracentral disc protr usion which indents both the thecal sac and spinal cord at this level. There is no abnormal signal i n the cord at this level. No syrinx. No cord atrophy nor focal cord swelling. 2. Other lesser findings T6-7 and T 11-12, as discussed above. 3. DATA REPOSITORY:
--- NOTE | 2023-08-30 06:30 | DI.MRI_ITS ---
Exam(s) MR BRAIN WO EXAM: MR BRAIN WO CLINICAL HISTORY: bilateral babinski; diffuse paraesthesias,R29.2 TECHNIQUE: Multiplanar multisequence MRI of the brain was performed. COMPARISON: No exams were available for comparison FINDINGS: CEREBRAL PARENCHYMA: There is no evidence of intracranial hemorrhage, mass effect, or shift of midline structures. There are no extra-axial fluid collections. Ventricles are not enlarged or shifted. There is a small focus of signal abnormality in left cerebellar hemisphere consistent with chronic la cunar infarct. There is no restricted diffusion at this level to suggest that this is an acute ische roya event. There are few tiny FLAIR bright foci of signal abnormality in the bilateral white matter, largest hannah suring 3 mm. Probably related to chronic ischemic change. No evident of acute territorial nor acute lacunar infarct. There is no significant focal signal abnormality evident on diffusion imaging to suggest acute ischem ic event. PITUITARY GLAND: No mass nor parasellar abnormality. No obvious abnormality in the cavernous sinuses. FLOW VOIDS: The expected flow void are noted. No evidence of obvious aneurysm nor obvious vascular ma lformation. PARANASAL SINUSES: There is abundant relatively symmetrical mucosal thickening in both maxillary sinu ses including multiple large post inflammatory retention cysts. No obvious fluid levels. Sphenoid s inuses appear unremarkable as does the right frontal sinus. The left frontal sinuses not developed. There is minimal mucosal thickening in the ethmoidal air cells bilaterally. ORBITS: No obvious findings. IMPRESSION: No significant acute intracranial findings on this noninfused MRI scan of the brain. Small non recent lacunar infarct in the left cerebellar hemisphere and mild bilateral periventricular white matter findings as described above. There is abundant mucosal thickening and post inflammatory retention cysts evident in both maxillary sinuses. DATA REPOSITORY:
== END ==
PROVIDERS: PCP Family Medicine; Visit Provider Psychiatry & Neurology Neurology
DX: M51.26 Other intervertebral disc displacement, lumbar region (principal); R29.2 Abnormal reflex
CPT/HCPCS: 70551; 72146

== ENCOUNTER → 2023-10-04 | Outpatient (CLI) | payer BC, SELFPAY ==
--- NOTE | 2023-10-04 07:38 | DI.MAMMO_ITS ---
Exam(s) MAMMO SCREENING EXAM: MAMMO SCREENING CLINICAL HISTORY: screening,z12.39 TECHNIQUE: Bilateral full field digital CC and MLO mammographic images were obtained with 3D tomosyn thesis and utilizing computer aided detection (CAD). COMPARISON: Available for comparison. FINDINGS: Masses/Architectural Distortion: None seen. Microcalcifications: No suspicious pleomorphic-type are seen. Skin Thickening/Nipple Retraction: None. IMPRESSION: 1. No significant interval change with no specific features of malignancy noted. 2. Unless there is more urgent need, screening mammography is recommended, as per [place] [employer] guidelines. BI-RADS Category 1 - Negative Breast Density - Category B - Scattered areas of fibroglandular density Breast density category C or D implies that the patient has dense breast tissue. Dense breast tissue is very common and is not abnormal but dense breast tissue can make it harder to find cancer on a ma mmogram. Also, dense breast tissue may increase their breast cancer risk. This information about the result of the mammogram report was provided to the patient to raise their awareness. Use this report when you speak with the patient about their risks for breast cancer, which includes their family hist ory. At that time, you may recommend for more screening tests (Ultrasound or MRI) as they might be us eful based on their risk. A negative radiographic report should not delay biopsy if a dominant or clinically suspicious mass is present. Up to ten percent of cancers are not identified on mammography. A negative report may reinforce clinical impression. Adenosis and dense breasts may obscure an underlying neoplasm. False positive reports average 6 to 10%. Patient will receive a letter notifying them of these results.
== END ==
PROVIDERS: PCP Family Medicine; Visit Provider Nurse Practitioner Women's Health
DX: Z12.31 Encounter for screening mammogram for malignant neoplasm of breast (principal)
CPT/HCPCS: 77063; 77067

== ENCOUNTER 2023-10-17 16:50 | Outpatient (REF) | payer BC, SELFPAY ==
[2023-10-17 21:41] LABS: Anion Gap 6.8 mmol/L (3-11); BUN 25 mg/dL (7-18); CO2 32.2 mmol/L (21.0-32.0); CREATININE 0.9 mg/dL (0.55-1.02); Calcium 9.6 mg/dL (8.5-10.1); Chloride 104 mmol/L (98-107); Glucose 98 mg/dL (74-106); Sodium 143 mmol/L (136-145)
== END 2023-10-17 16:51 | disposition home or self-care (01) ==
LOC: NCHCN 16:50
PROVIDERS: PCP Family Medicine; Visit Provider Family Medicine
DX: I10 Essential (primary) hypertension (principal)
CPT/HCPCS: 80048

== ENCOUNTER 2023-12-19 01:14 | Outpatient (CLI) | payer BC, SELFPAY ==
[2023-12-19] MEDS: Albuterol HFA 18 GM 200 PUFF INH IH (15:00)
[2023-12-19] MEDS: Methacholine 100 MG VIAL IH (15:00)
[2023-12-19] MEDS: Inhaler, Assist Device 1 EACH MC (15:01)
--- NOTE | 2023-12-23 11:23 | W.PFT ---
Date of service: 12/19/23 Time of Service: 13:05 Pulmonary Function Test Result Requesting Provider Shona Henderson Indications: Dyspnea on exertion Interpretation Spirometry: Decreased FEV1/FVC. Mild decrease in FEV1. No reversibility. Impression Mild obstructive ventilatory defect with no reversibility after albuterol. Flow volume curve suggests obstruction. Clinical Correlation therefore is recommended.
== END 2023-12-19 01:15 | disposition home or self-care (01) ==
LOC: RT 01:14
PROVIDERS: PCP Family Medicine; Visit Provider Family Medicine
DX: R06.09 Other forms of dyspnea (principal); J44.9 Chronic obstructive pulmonary disease, unspecified
CPT/HCPCS: 00123; 94060; 94070; 94726; 94729; 94010; J7674

== ENCOUNTER 2024-09-07 21:59 | Outpatient (REF) | payer BC, SELFPAY ==
[2024-09-07 22:21] LABS: BUN 27 mg/dL (7-18); CREATININE 0.8 mg/dL (0.55-1.02); Calculated LDL 73 mg/dL (<100); Chloride 109 mmol/L (98-107); Cholesterol 183 mg/dL (<200); Estimated GFR 79.22 (mL/min/1.73m2); Glucose 101 mg/dL (74-106); HDL Cholesterol 84 mg/dL (>or=50); Potassium 4.2 mmol/L (3.5-5.1); Sodium 145 mmol/L (136-145); Triglyceride 131 mg/dL (<150); Vitamin D 25 Total 19 ng/mL (30-100)
== END 2024-09-07 22:00 | disposition home or self-care (01) ==
LOC: NCHCN 21:59
PROVIDERS: PCP Family Medicine; Visit Provider Family Medicine
DX: M85.89 Other specified disorders of bone density and structure, multiple sites (principal); Z13.220 Encounter for screening for lipoid disorders
CPT/HCPCS: 80048; 80061; 82306

== ENCOUNTER 2024-10-05 00:19 | Outpatient (CLI) | payer BC, SELFPAY ==
--- NOTE | 2024-10-05 15:00 | DI.MAMMO_ITS ---
Exam(s) MAMMO SCREENING EXAM: MAMMO SCREENING CLINICAL HISTORY: screening TECHNIQUE: Mammograms were interpreted according to the usual protocol including computer analysis w [employer] CAD system, tomosynthesis and C-view imaging. COMPARISON: 2014 through 2023 FINDINGS: The breasts are composed of scattered fibroglandular densities, Breast Density category B. No suspicious masses or suspicious microcalcifications are seen. No skin thickening or abnormal axillary lymph nodes are seen. There has been no significant change from prior exams. IMPRESSION: BI-RADS Category 1, Negative mammogram Yearly screening mammography is recommended. Breast Density - Category B, scattered fibroglandular densities. A negative radiographic report should not delay biopsy if a dominant or clinically suspicious mass is present. Up to ten percent of cancers are not identified on mammography. A negative report may reinforce clinical impression. Adenosis and dense breasts may obscure an underlying neoplasm. False positive reports average 6 to 10%. Patient will receive a letter notifying them of these results.
== END 2024-10-05 00:39 ==
LOC: DI 00:19
PROVIDERS: PCP Family Medicine; Visit Provider Nurse Practitioner Women's Health
DX: Z12.31 Encounter for screening mammogram for malignant neoplasm of breast (principal); R92.323 Mammographic fibroglandular density, bilateral breasts
CPT/HCPCS: 77063; 77067

== ENCOUNTER 2024-11-05 02:43 | Outpatient (CLI) | payer BC, SELFPAY ==
--- NOTE | 2024-11-05 | DI.DEXA_ITS ---
Exam(s) XR DEXA BONE DENSITY W/WO DEBBIE EXAM: XR DEXA BONE DENSITY W/WO DEBBIE CLINICAL HISTORY: BONE DENSITY FINDING, M85.88 SPECIFIED DISORDERS BONE DENSITY/STRUCTURE TECHNIQUE: Routine DEXA evaluation of the lumbar spine, hip, or forearm. COMPARISON: CR XR DEXA BONE DENSITY W/WO DEBBIE from 01/18/2022 FINDINGS: Performed on a Hologic unit. Lateral image: No compression fracture evident. Lumbar Spine total T-score: -0.4. This is in normal range. Prior reading in January 2022 was -1.6 Hip total T-score:-1.9 which is in osteopenia range. Prior reading in January 2022 was -2.6 Independent reading at the level of the femoral neck yields T-score of -2.3 Forearm total T-score: -2.2 which is in the osteopenia range. Prior reading in 2021 was -2.0 IMPRESSION: Bone mineral density measures in the osteopenia range for the hip and forearm. Fracture risk is mode rate. Bone mineral density measures in the normal range for lumbar spine which appears to be an impr ovement when compared to the prior reading of January 2022. Note: Any spine fracture indicates 5x risk for subsequent spine fracture and 2x risk for subsequent h ip fracture. World Health Organization criteria for BMD interpretation classify patients: Normal...... T- Score at or above -1.0 Osteopenic... T- Score between -1.0 and -2.5 Osteoporosis... T-Score at or below -2.5
== END 2024-11-05 03:03 ==
LOC: DI 02:43
PROVIDERS: PCP Family Medicine; Visit Provider Family Medicine
DX: M85.88 Other specified disorders of bone density and structure, other site (principal)
CPT/HCPCS: 77080

== ENCOUNTER 2024-12-08 18:39 | Outpatient (REF) | payer BC, SELFPAY ==
[2024-12-08 19:45] LABS: Glucose Negative (Negative)
[2024-12-08 19:56] LABS: C & S Indicated? No; WBC 0-2 HPF (0-5)
== END 2024-12-08 18:40 | disposition home or self-care (01) ==
LOC: NCHCN 18:39
PROVIDERS: PCP Family Medicine; Visit Provider Family Medicine
DX: R31.9 Hematuria, unspecified (principal); R82.89 Other abnormal findings on cytological and histological examination of urine
CPT/HCPCS: 81003; 81015

== ENCOUNTER 2024-12-14 14:18 | Outpatient (REF) | payer BC, SELFPAY | END 2024-12-14 14:19 | disposition home or self-care (01) | LOC: LBN 14:18 | PROVIDERS: PCP Family Medicine; Visit Provider Nurse Practitioner Gerontology | DX: R31.9 Hematuria, unspecified (principal) | CPT/HCPCS: 87086 ==

== ENCOUNTER 2025-02-01 14:33 | Outpatient (REF) | payer BC, SELFPAY ==
[2025-02-01 16:05] LABS: Glucose Negative (Negative)
== END 2025-02-01 14:34 | disposition home or self-care (01) ==
LOC: LBN 14:33
PROVIDERS: PCP Family Medicine; Visit Provider Nurse Practitioner Gerontology
DX: R31.29 Other microscopic hematuria (principal)
CPT/HCPCS: 81003

== ENCOUNTER 2025-04-07 19:58 | Emergency (ER) | payer BC, SELFPAY ==
[2025-04-07 20:02] VITALS: BP 190/84; PULSE 90; RESP 16; TEMP 38.7; O2SAT 96
--- NOTE | 2025-04-07 20:15 | DI.RAD_ITS ---
Exam(s) XR CHEST 2V PA LATERAL EXAM: XR CHEST 2V PA LATERAL CLINICAL HISTORY: cough. TECHNIQUE: 2D digital imaging was performed. COMPARISON: CT CT ABDOMEN PELVIS WO from 12/09/2024 FINDINGS: 2 views: Heart size is normal. The mediastinum is not widened. There is infiltrate in the left lower lobe posterior basal segment. No pleural effusions. No obvious infiltrates in the right lung. No pulmonary edema. IMPRESSION: Left lower lobe infiltrate. No pleural effusions. Preliminary virtual Radiology report was reviewed DATA REPOSITORY: RADIATION DOSE DELIVERED:
[2025-04-07] MEDS: Normal Saline 1,000 ML 1000 ML IV (20:24)
[2025-04-07] MEDS: Ondansetron 4 MG/2 ML VIAL IVP (20:24)
[2025-04-07] MEDS: ACETAMINOPHEN 500 MG/50 ML BAG 200 MG IVPB (20:25)
[2025-04-07 20:35] LABS: Abs Immature Grans 0.03 10^3/uL (0.0-0.06); HCT 37.9 % (36.0-46.0); HGB 12.5 g/dL (11.2-15.7); Immature Grans % 0.3 %; MCH 28.2 pg (27.0-33.0); MCHC 33.0 % (32.0-36.0); MCV 85 fL (80-95); MPV 8.5 fL (8.0-11.0); Platelet Count 167 10^3/uL (130-400); RBC 4.44 10^6/uL (3.93-5.22); RDW 12.8 % (11.7-14.6); RDW-SD 39.4 fL; WBC 9.37 10^3/uL (4.4-10.8)
[2025-04-07 21:05] LABS: COVID-19 PCR Negative (Negative); RSV PCR Negative (Negative)
--- NOTE | 2025-04-07 21:05 | DI.VRAD_ITS ---
PROCEDURE INFORMATION: Exam: XR Chest Exam date and time: 04/07/2025 8:45 PM Age: 70 years old Clinical indication: Cough TECHNIQUE: Imaging protocol: Radiologic exam of the chest. Views: 2 views. COMPARISON: CT ABDOMEN PELVIS WO 12/09/2024 3:00 PM FINDINGS: Lungs: Focal airspace opacities are present at the left lung base. The lungs are otherwise clear. Pleural spaces: No pleural effusion. No pneumothorax. Heart/Mediastinum: The heart is normal size. Bones/joints: Unremarkable. IMPRESSION: Left basilar pulmonary radiopacities suspicious for aspiration/infection. Short interval follow-up is recommended to exclude underlying pulmonary pathology. Dictated and Authenticated by: Radha Knutson MD. Orderin Nicole Prince MD
[2025-04-07 21:06] LABS: ALT 35 U/L (14-59); AST 29 U/L (15-37); Albumin 3.9 g/dL (3.4-5.0); Alkaline Phosphatase 63 U/L (46-116); Anion Gap 10.7 mmol/L (3-11); BUN 21 mg/dL (7-18); Bilirubin, Direct 0.2 mg/dL (0.0-0.2); Bilirubin, Total 0.6 mg/dL (0.2-1.0); CO2 27.3 mmol/L (21.0-32.0); Calcium 9.0 mg/dL (8.5-10.1); Chloride 100 mmol/L (98-107); Glucose 135 mg/dL (74-106); Magnesium 2.0 mg/dL (1.8-2.4); Potassium 4.3 mmol/L (3.5-5.1); Sodium 138 mmol/L (136-145); Total Protein 7.1 g/dL (6.4-8.2); Troponin I 7 ng/L (<or=51)
--- NOTE | 2025-04-07 21:28 | W.ED.GENAD ---
Discharge Plan Disposition Patient Disposition: Home Condition: Stable Discharge Details Clinical Impression: Pneumonia Primary Care Provider: Lamin Thomason ED Provider: Suresh Rivera Home Meds and New Rx's Prescriptions: New amoxicillin-pot clavulanate 875-125 mg tablet 1 tab PO BID 5 Days Qty: 9 0RF Continued cyclosporine [Restasis] 0.05 % dropperette See Rx Instructions ophthalmic (eye) BID Rx Instructions: into the eye(s) twice a day; acetaminophen [Tylenol Arthritis Pain] 650 mg tablet extended release 650 mg PO Q12H budesonide-formoterol [Symbicort] 160-4.5 mcg/actuation HFA aerosol inhaler 1 inh inhalation ONCE amlodipine 5 mg tablet 5 mg PO DAILY fluticasone propionate [Flonase Allergy Relief] 50 mcg/actuation spray,suspension 2 spray intranasal DAILY Qty: 16 12RF Rx Instructions: administer into each nostril Adult 50 Plus Probiotic 4 billion cell capsule 4,000 mmu cells PO DAILY Rx Instructions: administer with a meal acetaminophen [Tylenol] 325 mg capsule 325 mg PO ONCE PRN alendronate 35 mg tablet 70 mg PO QWEEK Rx Instructions: dose unverified. multivitamin [Daily Value] 1 EACH tablet 1 ea PO irbesartan 150 mg tablet 150 mg PO DAILY guavnlzx-szf-ksgpu-hyaluron ac [id number] mg tablet PO collagen-silver oxide 1 % gel topical urea 40 % cream 1 applic topical BID aspirin [Ecotrin Low Strength] 81 MG tablet,delayed release (DR/EC) 81 mg PO DAILY Discharge Instructions Instructions: Azithromycin (Systemic), Amoxicillin and Clavulanate, Pneumonia, Adult ED Additional Instructions: You were seen you were seen in the emergency department for your pneumonia, placing you on 2 different antibiotics called Augmentin and azithromycin and I have sent a prescription for Zofran to help with any nausea. I have also sent you home with an inhaler to use for any severe shortness of breath over the next few days. Please return for any further respiratory distress try to stay well-nourished and hydrated Referrals: Lamin Thomason MD [Primary Care Provider, Medicine] Discharge Data Discharge Date/Time-TO BE ENTERED AT DEPARTURE: 04/07/25 22:08 HPI General Date/Time Provider Initiated Documentation: 04/07/25 20:08. HPI Narrative: 70 year-old female presents to ED today by POV/ambulating with a chief complaint of cough, congestion, dry heaving, nausea with onset on Saturday, a few days ago. Quality described as generalized respiratory illness, no radiation to chest pain, vomiting, diarrhea, abdominal pain, endorses mild shortness of breath. Severity is described as moderate. Palliating factors include has been taking Tylenol with some relief. Provoking factors include nothing specific. Events leading up to the incident/Associated Symptoms: Patient does work in a school. Patient not anticoagulated. Related Data Home Medications Medication Instructions Recorded Confirmed aspirin 81 mg tablet,delayed 81 mg PO DAILY 04/15/13 04/07/25 release (Ecotrin Low Strength) multivitamin (Daily Value tablet) 1 ea PO 01/26/16 12/09/24 acetaminophen 325 mg capsule 325 mg PO ONCE PRN 03/27/19 04/07/25 (Tylenol) glucosamine 750 mg-MSM 60 tab PO 07/05/22 12/09/24 mg-chondroit 150 mg-hyaluron ac 1 mg tablet irbesartan 150 mg tablet 150 mg PO DAILY 07/05/22 04/07/25 alendronate 35 mg tablet 70 mg PO QWEEK 07/09/22 04/07/25 cyclosporine 0.05 % eye drops in a See Rx Instructions ophthalmic 02/13/23 04/07/25 dropperette (Restasis) (eye) BID acetaminophen 650 mg 650 mg PO Q12H 07/09/23 04/07/25 tablet,extended release (Tylenol Arthritis Pain) amlodipine 5 mg tablet 5 mg PO DAILY 01/28/24 04/07/25 budesonide-formoterol HFA 160 1 inh inhalation ONCE 09/07/24 04/07/25 mcg-4.5 mcg/actuation aerosol inhaler (Symbicort) collagen, hydrolysate applic topical 10/14/24 12/09/24 (bovine)-silver oxide 1 % topical gel urea 40 % topical cream 1 applic topical BID 10/14/24 04/07/25 fluticasone propionate 50 2 spray intranasal DAILY #16 grams 10/21/24 04/07/25 mcg/actuation nasal spray,suspension (Flonase Allergy Relief) lactobacillus combination no.9 4 4,000 mmu cells PO DAILY 02/01/25 04/07/25 billion cell capsule (Adult 50 Plus Probiotic) amoxicillin 875 mg-potassium 1 tab PO BID 5 days #9 tabs 04/07/25 clavulanate 125 mg tablet Previous Rx's Medication Instructions Recorded fluticasone propionate 50 2 spray intranasal DAILY #16 grams 10/21/24 mcg/actuation nasal spray,suspension (Flonase Allergy Relief) amoxicillin 875 mg-potassium 1 tab PO BID 5 days #9 tabs 04/07/25 clavulanate 125 mg tablet Allergies Allergy/AdvReac Type Severity Reaction Status Date / Time tramadol HCl (From Ultra) AdvReac Severe n/v Verified 04/07/25 20:07 codeine AdvReac Intermediate n/v Verified 04/07/25 20:07 ibuprofen AdvReac Intermediate Hematuria Verified 04/07/25 20:07 prednisone AdvReac GI issues Verified 04/07/25 20:07 General Stated Complaint: RespSymp TIFFANY: 3 Review of Systems All systems reviewed & are unremarkable except as noted in HPI and below Exam Narrative Exam Narrative: GENERAL APPEARANCE: Well-nourished, non-toxic, awake and alert, atraumatic, mild acute distress. SKIN: Warm, pink, dry, intact, without rashes/lesions/ulcerations. HEAD: Normocephalic, atraumatic, normal hair distribution for gender/age. EYES: Normal conjunctiva, no exudates on lids/lashes. ENT: Nares patent, no circumoral cyanosis, no facial swelling NECK: Supple, trachea midline, painless cervical ROM. LUNGS/CHEST: Lungs - rhonchorous, non-labored respirations, normal A/P diameter, symmetrical expansion, no chest wall deformity HEART (CV/PV): Regular rate and rhythm without murmur, no peripheral edema, no JVD. ABDOMEN: Soft, non-distended, no guarding, no tenderness. MSK: Normal ROM, no swelling/deformity to bilateral UEs or LEs, moving all extremities without weakness, no cyanosis, spine midline without tenderness, normal curvature. NEURO: Mental Status AAOx4 - alert to person, place, time, events No facial droop, no forehead involvement. Motor: No focal weakness - strength 5/5 in bilateral UEs and LEs, proximal and distal, symmetric. Sensory: sensation intact to light touch globally. Gait normal: patient ambulated without ataxia into ED room. PSYCH: euthymic, cooperative, pleasant, appropriate speech Course Vital Signs Vital signs: Vital Signs Temperature 38.7 C H 04/07/25 20:02 Pulse 90 04/07/25 20:02 Respiratory Rate 16 04/07/25 20:02 Blood Pressure 190/84 H 04/07/25 20:02 Pulse Oximetry 96 04/07/25 20:02 Temperature 38.7 C H 04/07/25 20:02 Temperature Source Tympanic 04/07/25 20:02 Pulse 90 04/07/25 20:02 Respiratory Rate 16 04/07/25 20:02 Respiratory Effort Normal 04/07/25 20:47 Respiratory Depth Normal 04/07/25 20:47 Blood Pressure 190/84 H 04/07/25 20:02 Blood Pressure Position Supine 04/07/25 20:02 Pulse Oximetry 96 04/07/25 20:02 Oxygen Delivery Method Room Air 04/07/25 20:02 Oxygen Flow Rate 0 04/07/25 20:02 Pain Level 10 04/07/25 20:02 Lab/Test Results Lab/Test Results: Laboratory Tests Range/Units 04/07/25 04/07/25 20:22 20:28 WBC (4.4-10.8) 10^3/uL 9.37 RBC (3.93-5.22) 10^6/uL 4.44 Hgb (11.2-15.7) g/dL 12.5 Hct (36.0-46.0) % 37.9 MCV (80-95) fL 85 MCH (27.0-33.0) pg 28.2 MCHC (32.0-36.0) % 33.0 RDW (11.7-14.6) % 12.8 Plt Count (130-400) 10^3/uL 167 MPV (8.0-11.0) fL 8.5 Immature Gran % % 0.3 Neutrophils % % 87.1 Lymphocytes % % 7.0 Monocytes % % 5.1 Eosinophils % % 0.3 Basophils % % 0.2 Nucleated RBC % (0.0-0.3) % 0.0 Absolute Neutrophils (1.2-6.7) 10^3/uL 8.15 H Absolute Lymphocytes (1.2-3.4) 10^3/uL 0.66 L Absolute Monocytes (0.1-0.8) 10^3/uL 0.48 Absolute Eosinophils (0.0-0.7) 10^3/uL 0.03 Absolute Basophils (0.0-0.2) 10^3/uL 0.02 VBG Lactate (<or=2.0) mmol/L 1.3 Sodium (136-145) mmol/L 138 Potassium (3.5-5.1) mmol/L 4.3 Chloride (98-107) mmol/L 100 Carbon Dioxide (21.0-32.0) mmol/L 27.3 Anion Gap (3-11) mmol/L 10.7 BUN (7-18) mg/dL 21 H Creatinine (0.55-1.02) mg/dL 0.9 Est GFR (CKD-EPI 2020) (mL/min/1.73m2) 68.35 Glucose (74-106) mg/dL 135 H Calcium (8.5-10.1) mg/dL 9.0 Magnesium (1.8-2.4) mg/dL 2.0 Total Bilirubin (0.2-1.0) mg/dL 0.6 Conjugated Bilirubin (0.0-0.2) mg/dL 0.2 AST (15-37) U/L 29 ALT (14-59) U/L 35 Alkaline Phosphatase (46-116) U/L 63 Troponin I (<or=51) ng/L 7 Total Protein (6.4-8.2) g/dL 7.1 Albumin (3.4-5.0) g/dL 3.9 COVID-19 Source Nasopharynx SARS-CoV-2 (PCR) (Negative) Negative Influenza Type A (PCR) (Negative) Negative Influenza Type B (PCR) (Negative) Negative RSV (PCR) (Negative) Negative Medical Decision Making This dictation utilizes [id number] dictation software and may contain unedited grammatical errors. 70 year-old female presents to ED today by POV/ambulating with a chief complaint of cough, congestion, dry heaving, nausea with onset on Saturday, a few days ago. Quality described as generalized respiratory illness, no radiation to chest pain, vomiting, diarrhea, abdominal pain, endorses mild shortness of breath. Severity is described as moderate. Palliating factors include has been taking Tylenol with some relief. Provoking factors include nothing specific. Events leading up to the incident/Associated Symptoms: Patient does work in a school. Patients' medical history: Hypertension, history of cerebral infarction, asthma, osteoporosis, hypercalcemia. 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 Pertinent exam findings / vital signs include lungs diffusely rhonchorous, no labored respirations, had low-grade fever on arrival that responded to medicine, benign abdomen, nontoxic and neuro intact. Differential / pathologies of concern include viral syndrome, pneumonia, less likely sepsis. Diagnostic studies of: - CBC, CMP, lactate, magnesium, troponin, respiratory PCR swab, x-ray chest. - CBC shows no leukocytosis, no left shift - Lactate negative do not suspect sepsis - CMP without actionable abnormality - Magnesium within normal limits - Troponin negative do not suspect viral myocarditis -, Respiratory PCR swab negative - X-ray chest shows left lower lobe infiltrate likely pneumonia Interventions of: - Provided IVP Tylenol, Zofran, 1 L IVF NS, initial doses of Augmentin and azithromycin for pneumonia as well as to go bottle of ondansetron and an albuterol inhaler to go, provided a Diflucan tablet to take after completing antibiotics for yeast infection prophylaxis. ED Course/Assessment/Plan: 70-year-old female presents with upper respiratory infection cough, weakness, nausea feeling dehydrated, was found to have a pneumonia on chest x-ray labs are reassuring for no sepsis, she is in no respiratory distress, she was given dual antibiotic treatment for pneumonia with Augmentin and azithromycin, short to go supply of Zofran as well as an inhaler for symptomatic relief from shortness of breath and a Diflucan tablet for empiric prevention of yeast infection. I counseled her on strict return criteria for any respiratory distress she felt well enough to go home at this time. Findings not consistent with respiratory failure, respiratory distress, sepsis, myocarditis. Disposition of Pneumonia. Patient verbalized understanding of the plan and return to ED criteria and engaged in shared decision making. Medical Records Medical records reviewed: Yes I reviewed the patient's medical records. Imaging Data Radiologic Study: Attestation: I personally reviewed and interpreted this imaging study as follows: Imaging: X-Ray Radiologist's impression: Exam: XR Chest Exam date and time: 04/07/2025 8:45 PM Age: 70 years old Clinical indication: Cough TECHNIQUE: Imaging protocol: Radiologic exam of the chest. Views: 2 views. COMPARISON: CT ABDOMEN PELVIS WO 12/09/2024 3:00 PM FINDINGS: Lungs: Focal airspace opacities are present at the left lung base. The lungs are otherwise clear. Pleural spaces: No pleural effusion. No pneumothorax. Heart/Mediastinum: The heart is normal size. Bones/joints: Unremarkable. IMPRESSION: Left basilar pulmonary radiopacities suspicious for aspiration/infection. Short interval follow-up is recommended to exclude underlying pulmonary pathology. Dictated and Authenticated by: Radha Knutson MD. EXAM: XR CHEST 2V PA LATERAL CLINICAL HISTORY: cough. TECHNIQUE: 2D digital imaging was performed. COMPARISON: CT CT ABDOMEN PELVIS WO from 12/09/2024 FINDINGS: 2 views: Heart size is normal. The mediastinum is not widened. There is infiltrate in the left lower lobe posterior basal segment. No pleural effusions. No obvious infiltrates in the right lung. No pulmonary edema. IMPRESSION: Left lower lobe infiltrate. No pleural effusions. Preliminary virtual Radiology report was reviewed Lab Data Lab results reviewed: Yes I reviewed the patient's lab results. Labs: Laboratory Tests Range/Units 04/07/25 04/07/25 20:22 20:28 WBC (4.4-10.8) 10^3/uL 9.37 RBC (3.93-5.22) 10^6/uL 4.44 Hgb (11.2-15.7) g/dL 12.5 Hct (36.0-46.0) % 37.9 MCV (80-95) fL 85 MCH (27.0-33.0) pg 28.2 MCHC (32.0-36.0) % 33.0 RDW (11.7-14.6) % 12.8 Plt Count (130-400) 10^3/uL 167 MPV (8.0-11.0) fL 8.5 Immature Gran % % 0.3 Neutrophils % % 87.1 Lymphocytes % % 7.0 Monocytes % % 5.1 Eosinophils % % 0.3 Basophils % % 0.2 Nucleated RBC % (0.0-0.3) % 0.0 Absolute Neutrophils (1.2-6.7) 10^3/uL 8.15 H Absolute Lymphocytes (1.2-3.4) 10^3/uL 0.66 L Absolute Monocytes (0.1-0.8) 10^3/uL 0.48 Absolute Eosinophils (0.0-0.7) 10^3/uL 0.03 Absolute Basophils (0.0-0.2) 10^3/uL 0.02 VBG Lactate (<or=2.0) mmol/L 1.3 Sodium (136-145) mmol/L 138 Potassium (3.5-5.1) mmol/L 4.3 Chloride (98-107) mmol/L 100 Carbon Dioxide (21.0-32.0) mmol/L 27.3 Anion Gap (3-11) mmol/L 10.7 BUN (7-18) mg/dL 21 H Creatinine (0.55-1.02) mg/dL 0.9 Est GFR (CKD-EPI 2020) (mL/min/1.73m2) 68.35 Glucose (74-106) mg/dL 135 H Calcium (8.5-10.1) mg/dL 9.0 Magnesium (1.8-2.4) mg/dL 2.0 Total Bilirubin (0.2-1.0) mg/dL 0.6 Conjugated Bilirubin (0.0-0.2) mg/dL 0.2 AST (15-37) U/L 29 ALT (14-59) U/L 35 Alkaline Phosphatase (46-116) U/L 63 Troponin I (<or=51) ng/L 7 Total Protein (6.4-8.2) g/dL 7.1 Albumin (3.4-5.0) g/dL 3.9 COVID-19 Source Nasopharynx SARS-CoV-2 (PCR) (Negative) Negative Influenza Type A (PCR) (Negative) Negative Influenza Type B (PCR) (Negative) Negative RSV (PCR) (Negative) Negative PFSH All Active Problems (Updated 04/07/25 @ 21:35 by GERALDINE Reina) Pneumonia (Acute) Chronic rhinitis (Acute) Postnasal drip (Acute) Mixed incontinence (Acute) Plantar verruca (Acute) Lumbar stenosis (Acute) Left lumbar radiculopathy (Acute) Babinski reflex (Acute) Low serum vitamin B12 (Acute) Metatarsalgia, right foot (Acute) Peripheral neuropathy (Acute) Toe pain, left (Acute) Toe pain, right (Acute) Hammer toe of right foot (Acute) Hammer toe of left foot (Acute) Osteoporosis (Chronic) Taking alendronate Corns and callosities (Acute) Nail dystrophy (Acute) Hematuria (Acute) Vitamin D deficiency (Acute) Raynauds syndrome (Acute) Hypertension (Acute 01/24/15) Medical History Gross hematuria Essential hypertension Adjustment disorder with depressed mood Polyneuropathy Prolapsed lumbosacral intervertebral disc Hammer toe Dyspnea on exertion Herniation of nucleus pulposus of lumbar intervertebral disc with sciatica Cerebral infarction Arthritis Pain of left lower extremity Sinusitis Lacunar infarction Vitamin B deficiency Tricuspid valve regurgitation Asthma COVID-19 Osteopenia Sinusitis chronic, frontal HTN (hypertension) Asymptomatic microscopic hematuria Bereavement Muscle cramps Eustachian tube disorder Intermittent palpitations Hypercalcemia Exercise induced bronchospasm Menopausal and postmenopausal disorder Reactive airway disease Surgical History History of back surgery (~11/2023) L4-L5 stenosis/compression S/P hammer toe correction History of bunionectomy of right great toe History of bunionectomy of left great toe Colonoscopy - MAC (03/25/17) Family History Mother Diabetes Coronary artery disease Hypertension Stroke Father Coronary artery disease Stroke Hypertension Sister Diabetes Coronary artery disease Other Thyroid disorder Social History Smoking/Tobacco Use Status: Former Tobacco Use Smoking risk assessment performed?: Yes Alcohol Intake: current Alcohol Intake frequency: a few times a month Drug use: Never Household members: none Number of Children: 2 What is your relationship status?: Panel score (0-1 are the most socially isolated patients): 0 Seatbelt use: always Female Reproductive History Menstrual Menopause type: natural History History 3 Para 2 Hx # Term Pregnancies Multiple births Hx # Pregnancies Ectopic pregnancies AB induced Hx Number of Living Children AB spontaneous
[2025-04-07 21:50] VITALS: BP 127/67; PULSE 68; RESP 16; TEMP 36.6; O2SAT 95
[2025-04-07] MEDS: Amoxicillin 875/Clav. 125 TAB PO (21:50)
[2025-04-07] MEDS: Azithromycin 250 MG TAB 500 MG PO (21:50)
[2025-04-07] MEDS: Albuterol HFA 8 GM 60 PUFF INH IH (21:51)
[2025-04-07] MEDS: Ondansetron O.D.T. 4 MG TABEF, 3 TABS/BTL PO (21:51)
[2025-04-07] MEDS: Fluconazole 150 MG TAB (22:06)
[2025-04-07 22:07] VITALS: BP 127/67; PULSE 68; RESP 16; O2SAT 95
== END 2025-04-07 22:08 | disposition home or self-care (01) ==
PROVIDERS: Emergency Provider Physician Assistant; PCP Family Medicine
DX: J18.9 Pneumonia, unspecified organism (principal)
CPT/HCPCS: 99284; 99285; 96375; 80053; 80076; 87637; 96365; 71046; 83605; 83735; 84484; 85025; J0131; J2405

== ENCOUNTER 2025-04-20 15:37 | Outpatient (REF) | payer BC, SELFPAY ==
[2025-04-20 21:34] LABS: TSH (W/Ref FT4) 0.50 uIU/mL (0.55-4.78)
== END 2025-04-20 15:38 | disposition home or self-care (01) ==
LOC: NCHCN 15:37
PROVIDERS: PCP Family Medicine; Visit Provider Family Medicine
DX: R63.4 Abnormal weight loss (principal); L60.3 Nail dystrophy
CPT/HCPCS: 87101; 87206; 84439; 84443

== ENCOUNTER → 2025-04-26 01:33 | Outpatient (CLI) | payer BC, SELFPAY ==
--- NOTE | 2025-04-26 | DI.RAD_ITS ---
Exam(s) XR CHEST 2V PA LATERAL EXAM: XR CHEST 2V PA LATERAL CLINICAL HISTORY: LT LOWER LOBE PULMONARY INFILTRATE, R91.8, OTHER ABNL FINDING LUNG FIELD. TECHNIQUE: 2D digital imaging was performed. COMPARISON: CR,XR XR CHEST 2V PA LATERAL from 04/07/2025 FINDINGS: 2 views: Heart size is normal. The mediastinum is not widened. There has been almost complete resolution of the left lower lobe infiltrate seen on chest x-ray of 04/07/2025. Right lung remains clear. There are no pleural effusions. IMPRESSION: Almost complete resolution of left lower lobe infiltrate. No pleural effusions DATA REPOSITORY: RADIATION DOSE DELIVERED:
== END ==
LOC: DI 01:33
PROVIDERS: PCP Family Medicine; Visit Provider Family Medicine
DX: R91.8 Other nonspecific abnormal finding of lung field (principal)
CPT/HCPCS: 71046

== ENCOUNTER 2025-04-27 15:47 | Outpatient (REF) | payer BC, SELFPAY ==
[2025-04-27 21:04] LABS: TSH (W/Ref FT4) 0.71 uIU/mL (0.55-4.78)
== END 2025-04-27 15:48 | disposition home or self-care (01) ==
LOC: NCHCN 15:47
PROVIDERS: PCP Family Medicine; Visit Provider Family Medicine
DX: R63.4 Abnormal weight loss (principal)
CPT/HCPCS: 84443